=== PATIENT | male | born 1940 | race Caucasian/White ===

== ENCOUNTER 2016-06-15 09:53 | Inpatient (IN) | payer MEDICARE, OTHER ==
[~2016-06-15] VITALS: Ht 167.6 cm; Wt 81.0 kg
[~2016-06-15 09:53] MED LIST: AMIO200T PO; AMLO5TAB4 PO; ATOR20TA38 PO; Acetaminophen PO; CARV12.598 PO; CEPH500C PO; CLOP75TA4 PO; ENAL5TAB81 PO; FURO-110 PO; GLIM2TAB PO; RTPRO5 NEB; SITA100T8 PO
[2016-06-15] MEDS ORDERED: FUROSEMIDE 40 MG INJ IV STA (10:04)
[2016-06-15] MEDS ORDERED: AMIODARONE 150 MG INJ IV STA (10:15)
[2016-06-15] MEDS ORDERED: CARV3.12 PO (10:21)
[2016-06-15] MEDS ORDERED: ATOR80TA75 PO (10:21)
[2016-06-15] MEDS ORDERED: SIN25100 PO (10:22)
[2016-06-15] MEDS ORDERED: TRAM-40 PO (10:23)
[2016-06-15] MEDS ORDERED: DUTA1CPM4 PO (10:23)
[2016-06-15] MEDS ORDERED: MOME13HF2 INHALATION (10:24)
[2016-06-15] MEDS ORDERED: ALBU8.5H3 INH (10:24)
[2016-06-15] MEDS ORDERED: METOPROLOL 5 MG INJ IV ONE (10:30)
[2016-06-15 10:33] LABS: BASOPHILS % 0.3 % (0.0-2.0); EOSINOPHILS # 0.1 10^3/ul (0.0-0.5); EOSINOPHILS % 0.8 % (0.0-7.0); HEMATOCRIT 31.6 % (42.0-52.0); HEMOGLOBIN 10.8 g/dl (14.0-18.0); LYMPHOCYTES # 1.1 10^3/ul (0.8-2.9); LYMPHOCYTES % 15.3 % (15.0-51.0); MEAN CORPUSCULAR HEMOGLOBIN 30.3 pg (29.0-33.0); MEAN CORPUSCULAR HGB CONC 34.1 g/dl (32.0-37.0); MEAN CORPUSCULAR VOLUME 88.9 fl (82.0-101.0); MEAN PLATELET VOLUME 10.4 fl (7.4-10.4); MONOCYTE # 0.6 10^3/ul (0.3-0.9); MONOCYTES % 8.1 % (0.0-11.0); NEUTROPHIL # 5.2 10^3/ul (1.6-7.5); NEUTROPHILS % 75.5 % (39.0-77.0); PLATELET COUNT 84 10^3/UL (140-440); RED BLOOD COUNT 3.55 10^6/ul (4.70-6.10); RED CELL DISTRIBUTION WIDTH 15.1 % (11.5-14.5); UNCORRECTED WBC 6.9 10^3/ul (4.8-10.8); WHITE BLOOD COUNT 6.9 10^3/ul (4.8-10.8)
[2016-06-15 10:38] LABS: CONDITION 1; LH ANALYZER COMMENTS 1
--- NOTE | 2016-06-15 10:38 | RADRPT ---
PROCEDURE: Chest x-ray CLINICAL INDICATION: Shortness of breath TECHNIQUE: Chest single view COMPARISON: 11/15/2015 FINDINGS: As before there is a left chest AICD. Stable mild cardiomegaly and an sclerotic aortic calcificatio n seen. Bony vessels are borderline prominent. There are low lung volumes with bibasilar atelectas is. Costophrenic angles are sharp. IMPRESSION: 1. Stable cardiomegaly and an sclerotic aortic calcification. 2. Borderline prominence of pulmonary vessels. 3. Low lung volumes. 4. AICD RPTAT: HH .Av Reed MD, MD Date Time Electronically viewed and signed by .Av Reed MD, on 06/15/2016 10:38 .W/
[2016-06-15 10:42] LABS: CHLORIDE 105 mmol/L (97-110); SODIUM 138 mmol/L (135-144)
[2016-06-15 10:43] LABS: POTASSIUM 5.3 mmol/L (3.5-5.1)
[2016-06-15 10:44] LABS: CREATININE 1.42 mg/dl (0.61-1.24)
[2016-06-15 10:45] LABS: ALANINE AMINOTRANSFERASE 18 IU/L (13-69); ALBUMIN/GLOBULIN RATIO 1.37; ALKALINE PHOSPHATASE 143 IU/L (42-121); ANION GAP 18 (8-16); ASPARTATE AMINO TRANSFERASE 26 IU/L (15-46); BILIRUBIN,INDIRECT 0.2 mg/dl (0-1.1); BILIRUBIN,TOTAL 0.2 mg/dl (0.2-1.3); BLOOD UREA NITROGEN 32 mg/dl (7-20); CARBON DIOXIDE 20 mmol/L (21-31); GLUCOSE 145 mg/dl (70-220); TOTAL PROTEIN 6.9 g/dl (6.1-8.1)
[2016-06-15 10:46] LABS: CALCIUM 8.8 mg/dl (8.4-10.2)
[2016-06-15 11:07] LABS: TROPONIN-I < 0.012 ng/ml (0.00-0.12)
[2016-06-15 11:38] LABS: INR 1.29; PROTIME 16.2 Sec (12.2-14.2); PT RATIO 1.3
--- NOTE | 2016-06-15 11:38 | ERA ---
ER Documentation Chief Complaint Date/Time DATE: 06/15/16 TIME: 1001 Chief Complaint SOB FOR 3 DAYS. SENT BY FOR TACHYCARDIA AND SOB. NO FEVERS. HPI 76-year-old male presents to the emergency department complaining of shortness of breath for 3 days. Patient is non-Tajik speaking with my history available from conversations with his family and his referring chief hospital administrator. Patient went to see his chief hospital administrator today for increasing shortness of breath over the last 3 days. Patient denied chest pain palpitations fevers chills or sputum production. Dr. Hartley Saw the patient and evaluated his pacemaker and we was noted to be in atrial fibrillation. Patient was referred to the emergency department for evaluation. ROS All systems reviewed and are negative except as per history of present illness. Medications Home Meds Active Scripts Furosemide* (Lasix*) 20 Mg Tab, 20 MG PO DAILY@06 for 30 Days, TAB Prov:MARIA LUZ LOPEZ MD 05/24/15 Reported Medications Mometasone-Formoterol (Dulera) 100-5 Mcg - 13 Gm Hfa.aer.ad, 2 PUFFS INHALATION BID, #1 INHALER 06/15/16 Albuterol Sulfate* (Proair HFA*) 8.5 Gm Hfa.aer.ad, 2 PUFF INH Q6H Y for WHEEZING AND SOB, #1 INHALER 06/15/16 Tramadol Hcl* (Ultram*) 50 Mg Tablet, 100 MG PO Q6H Y for PAIN, TAB 06/15/16 Dutasteride/Tamsulosin HCl (Dutasteride-Tamsulosin 0.5-0.4) 1 Each Cpmp.24hr, 1 EACH PO DAILY, CAP 06/15/16 Carbidopa-Levodopa* (Sinemet*) 25-100 Mg Tab, 1 TAB PO TID, TAB 06/15/16 Atorvastatin* (Atorvastatin*) 80 Mg Tablet, 80 MG PO QHS, #30 TAB 06/15/16 Carvedilol* (Coreg*) 3.125 Mg Tablet, 3.125 MG PO BID, #60 TAB 06/15/16 Glimepiride* (Glimepiride*) 2 Mg Tablet, 2 MG PO WITH BREAKFAST, TAB 11/15/15 Clopidogrel Bisulfate* (Clopidogrel Bisulfate*) 75 Mg Tablet, 75 MG PO DAILY, # 30 TAB 11/15/15 Sitagliptin* (Januvia*) 100 Mg Tablet, 100 MG PO DAILY, TAB 04/25/15 Discontinued Reported Medications Amlodipine Besylate* (Norvasc*) 5 Mg Tablet, 5 MG PO DAILY, TAB 11/15/15 Discontinued Scripts Cephalexin* (Cephalexin*) 500 Mg Capsule, 500 MG PO TID, #21 CAP Prov:JAIRO JENNINGS MD 11/16/15 [Acetaminophen*] 325 MG TAB No Conflict Check, 650 MG PO Q6H Y for PAIN LEVEL 1- 3 OR FEVER, #60 TAB Prov:JAIRO JENNINGS MD 11/16/15 Enalapril Maleate* (Vasotec*) 5 Mg Tab, 2.5 MG PO DAILY, #1 TAB Prov:CHIQUITA FLORES MD 06/07/15 Carvedilol* (Coreg*) 12.5 Mg Tab, 3.125 MG PO BID, #1 TAB Prov:CHIQUITA FLORES MD 06/07/15 Amiodarone Hcl* (Amiodarone Hcl*) 200 Mg Tab, 200 MG PO BID, #1 TAB Prov:CHIQUITA FLORES MD 06/07/15 Albuterol Sulfate* (Proventil* Neb) 2.5 Mg/0.5 Ml Nebu, 2.5 MG NEB Q2H RESP THERAPY Y for SHORTNESS OF BREATH, #1 BOTTLE Prov:CHIQUITA FLORES MD 06/07/15 Atorvastatin Calcium* (Atorvastatin Calcium*) 20 Mg Tab, 80 MG PO HS for 30 Days , TAB Prov:MARIA LUZ LOPEZ MD 05/24/15 Allergies Allergies: Coded Allergies: Penicillins (Verified Allergy, Unknown, 06/15/16) aspirin (Unverified Allergy, Unknown, 06/15/16) PMhx/Soc History of Surgery: No Anesthesia Reaction: No Hx Neurological Disorder: No Hx Respiratory Disorders: No Hx Cardiac Disorders: No Hx Psychiatric Problems: No Hx Miscellaneous Medical Probl: No Hx Alcohol Use: No Hx Substance Use: No Hx Tobacco Use: No Smoking Status: Never smoker FmHx Noncontributory for chief complaint Physical Exam Vitals Vital Signs Date Time Temp Pulse Resp B/P Pulse Ox O2 Delivery O2 Flow Rate FiO2 06/15/16 11:17 Nasal Cannula 06/15/16 11:00 98.3 121 20 76/60 98 Room Air 06/15/16 10:45 98.3 120 20 78/62 98 Room Air 06/15/16 10:45 Nasal Cannula 3 06/15/16 10:30 98.3 130 20 67/51 98 Room Air 06/15/16 09:55 98.8 139 22 124/75 100 Physical Exam GENERAL: Patient is an elderly ill-appearing gentleman HEENT: Pupils equal, round, and reactive to light. EOMI. There is no scleral icterus. NECK: C-spine is soft and supple, there is no meningismus. There is no cervical lymphadenopathy. No JVD noted LUNGS: Occasional crackle bilaterally, no tachypnea or retractions HEART: Pacemaker appreciated. Faint murmur over the precordium. Patient has a rapid irregularly irregular rate and rhythm ABDOMEN: Soft, non-tender, non-distended. There are bowel sounds in all four quadrants. No rebound or guarding. EXTREMITIES: 2+ edema both lower extremities without cyanosis or clubbing NEURO: The patient moves all four extremities with 5/5 strength. Cranial nerves II - XII are intact. Normal gait. Alert and oriented SKIN: There is no apparent rash or petechiae. HEME/LYMPHATIC: There is no evidence of excessive bruising or lymphedema. PSYCHIATRIC: The patient does not appear anxious or depressed. Result Diagram: 06/15/16 1018 06/15/16 1018 Results 24 hrs Laboratory Tests Test 06/15/16 10:18 Alanine Aminotransferase (ALT/SGPT) 18IU/L Albumin 4.0g/dl Albumin/Globulin Ratio 1.37 Alkaline Phosphatase 143IU/L Anion Gap 18 Aspartate Amino Transf (AST/SGOT) 26IU/L Basophils # 0.010^3/ul Basophils % 0.3% Blood Morphology Comment Blood Urea Nitrogen 32mg/dl Calcium Level 8.8mg/dl Carbon Dioxide Level 20mmol/L Chloride Level 105mmol/L Creatinine 1.42mg/dl Direct Bilirubin 0.00mg/dl Eosinophils # 0.110^3/ul Eosinophils % 0.8% Globulin 2.90g/dl Glucose Level 145mg/dl Hematocrit 31.6% Hemoglobin 10.8g/dl Indirect Bilirubin 0.2mg/dl Lymphocytes # 1.110^3/ul Lymphocytes % 15.3% Mean Corpuscular Hemoglobin 30.3pg Mean Corpuscular Hemoglobin Concent 34.1g/dl Mean Corpuscular Volume 88.9fl Mean Platelet Volume 10.4fl Monocytes # 0.610^3/ul Monocytes % 8.1% Neutrophils # 5.210^3/ul Neutrophils % 75.5% Nucleated Red Blood Cells # 0.010^3/ul Nucleated Red Blood Cells % 0.0/100WBC Platelet Count 8410^3/UL Potassium Level 5.3mmol/L Red Blood Count 3.5510^6/ul Red Cell Distribution Width 15.1% Sodium Level 138mmol/L Total Bilirubin 0.2mg/dl Total Protein 6.9g/dl Troponin I < 0.012ng/ml White Blood Count 6.910^3/ul Current Medications Medications (Trade) Dose Ordered Sig/Lloyd Route PRN Reason Start Time Stop Time Status Last Admin Dose Admin Furosemide (Lasix) 40 mg ONCE STAT IV 06/15/16 10:04 06/15/16 10:06 DC 06/15/16 10:17 Metoprolol Tartrate (Lopressor) 5 mg ONCE ONCE IV 06/15/16 10:30 06/15/16 10:31 DC 06/15/16 10:17 Amiodarone HCl (Cordarone) 150 mg ONCE STAT IV 06/15/16 10:15 06/15/16 10:16 DC 06/15/16 10:19 Procedures/MDM Patient was taken to a room, seen and evaluated. Comfort measures were initiated. Diagnostic tests were ordered and reviewed. 3 LEAD RHYTHM STRIP: Wide-complex atrial fibrillation with rapid ventricular response EK lead EKG reviewed by myself: Wide-complex tachycardia, likely A. fib with bundle branch block Left bundle branch block Nonspecific ST and T-wave changes Impression: Abnormal EKG RADIOLOGY: reviewed with the radiologist CONSULTATION: Dr. Mcguire and I spoke RE: his arrhythmia. Patient's pacemaker defibrillator had been interrogated in the office indicating that this was not ventricular tachycardia but an atrial rhythm. Dr. Jennings was notified for admission REEVALUATION: Patient went hypotensive after the Lasix and Lopressor, but appeared to be improving from a mental status. His heart rate was better at 120 and he did not appear to be in shock. I considered dobutamine and dopamine , but this seems unnecessary at this time given the patient's overall clinical picture and opted to further observe the patient closely. Intensive care unit admissions were arranged MEDICAL DECISION MAKING: This is a 76-year-old male presents to the emergency department short of breath. Differential diagnosis entertained was broad and potential high acuity. Ultimately, patient has evidence of decompensated congestive heart failure complicating a rapid atrial fibrillation and a cardiomyopathy with a known ejection fraction of 30%. Patient has required diuretics and rhythm control, but unfortunately has been hypotensive after these interventions. He does not necessarily appear to be in cardiogenic shock is not hypoperfusing at this time. Patient will require further intervention will be admitted to the intensive care unit for further close observation and I will initiate these further interventions if necessary based on the patient's clinical presentation. Fortunately, patient's kidney functions appear to be normal and his troponin appears to be normal. CRITICAL CARE: Time:>35 minutes Patient has a significant chance of clinical deterioration Treatments/Evaluations: Close monitoring and treatment of unstable vital signs, cardiorespiratory, and neurologic status, while maintaining tight balance of fluid, respiratory, and cardiac interventions. Departure Diagnosis: Primary Impression: Atrial fibrillation with rapid ventricular response Additional Impressions: CHF (congestive heart failure) Cardiomyopathy Bundle branch block DAVID MENDENHALL Jun 15, 2016 11:37
[2016-06-15 11:39] LABS: PARTIAL THROMBOPLASTIN TIME 29.2 Sec (25.0-35.0)
--- NOTE | 2016-06-15 11:58 | RADRPT ---
PROCEDURE: US left upper extremity venous CLINICAL INDICATION: Left upper extremity pain and swelling TECHNIQUE: Multiple longitudinal and transverse images of the right upper extremity veins were obt ained with hernández scale and color Doppler imaging. 2D grayscale measurements with compression, color Doppler flow, and augmentation was performed. COMPARISON: No prior studies are available for comparison. FINDINGS: The left jugular vein, subclavian vein, axillary vein, brachial, basilic, ulnar, and radial veins de monstrates normal filling of the vessel. Normal waveforms are visualized and there is normal respon se to augmentation. IMPRESSION: No evidence of a deep vein thrombosis involving the left upper extremity. RPTAT:PP .Anthony Myers MD, MD Date Time Electronically viewed and signed by .Anthony Myers MD, on 06/15/2016 11:58 .Skip/
[2016-06-15] MEDS ORDERED: HYDROmorphONE 1 MG/ML SYG IV PRN (14:00)
[2016-06-15] MEDS ORDERED: DOCUSATE SODIUM 100 MG CAP PO PRN (14:00)
[2016-06-15] MEDS ORDERED: ONDANSETRON 4 MG INJ IV PRN (14:00)
[2016-06-15] MEDS ORDERED: NA POLYST SULFON 15 GM/60 ML BTL PO ONE (14:00)
[2016-06-15] MEDS ORDERED: NA PHOSPHATE/BIPHOS 133 ML ENEMA PR PRN (14:00)
[2016-06-15] MEDS: TAMSULOSIN (SR) 0.4 MG CAP PO SCH (14:00)
[2016-06-15] MEDS ORDERED: Discontinue Glyburide, Glipizide, and/or Glimepiride prior to starting Insulin XX ONE (14:00)
[2016-06-15] MEDS ORDERED: BISACODYL (EC) 5 MG TAB PO PRN (14:00)
[2016-06-15] MEDS ORDERED: ALBUTEROL/IPRATROPIUM (NEB) 3 ML AMP HHN PRN (14:00)
[2016-06-15] MEDS ORDERED: BISACODYL 10 MG SUPP PR PRN (14:00)
[2016-06-15] MEDS ORDERED: HYPOGLYCEMIA PROTOCOL when Glucose is <70 mg/dL or symptomatic <90 mg/dL. XX ONE (14:00)
[2016-06-15] MEDS ORDERED: ZOLPIDEM 5 MG TAB PO PRN (14:00)
[2016-06-15] MEDS ORDERED: NACL 0.9% 3 ML SYG IV SCH (14:00)
[2016-06-15] MEDS ORDERED: MAGNESIUM HYDROXIDE 30ML CUP PO PRN (14:00)
--- NOTE | 2016-06-15 14:26 | HP ---
DATE OF ADMISSION: 06/15/2016 REASON FOR ADMISSION: Atrial fibrillation with rapid ventricular rate, severe hypotension, history of ischemic cardiomyopathy. HISTORY OF PRESENT ILLNESS: This is a 76-year-old male who has a past medical history of hypertensi on, hyperlipidemia, diabetes mellitus, history of ischemic cardiomyopathy with ejection fraction 25% to 30%. The patient was last admitted in September to October 2015 for cardiac arrhythmia and had status p ost AICD placement done by Dr. Mike Mcguire. The patient was sent today by his primary care doctors to come to the emergency room because of having abnormal labs. The BUN was high, creatinine was 1.7 . He was also complaining of shortness of breath for the past 3 days. The patient is not speaking. History has been obtained from his family members and also from his primary care doctor's notes. The patient was seen by Dr. Mike Mcguire in the clinic, he was complaining of shortness of breath. T he patient is noted to be in atrial fibrillation with rapid ventricular rate. He was sent to the [facility] Emergency Room. In the emergency room, his heart rate was also up to 130 s. The patient was given low dose of the metoprolol, but his blood pressure dropped down to 76/60. He was given 1 amiodarone dose and he is getting admitted to the ICU for severe hypotension and atr ial fibrillation with rapid ventricular rate. He denies any nausea, vomiting, headache, dizziness, blurry vision, constipation, diarrhea, dysuria, increased urinary frequency. REVIEW OF SYSTEMS: Positive for chest pain, palpitation, shortness of breath. Other 12-point revie w of systems has been obtained and is negative except what is mentioned in the history of present il lness. PAST MEDICAL HISTORY: Notable for hypertension, hyperlipidemia, diabetes mellitus, history of ische dave cardiomyopathy, EF 25% to 30%, status post automatic implantable cardioverter-defibrillator plac ement. History of congestive heart failure, systolic. PAST SURGICAL HISTORY: History of AICD placement in 2016. SOCIAL HISTORY: No smoking, alcohol and recreational drug use at this time. FAMILY HISTORY: He denies any history of coronary artery disease or stroke in the family. PHYSICAL EXAMINATION: VITAL SIGNS: Temperature 98.3, heart rate 123, respirations 20, blood pressure 85/63, saturation 10 0% on 2 liters nasal cannula. GENERAL: Awake, alert, in moderate distress due to the hypotension and shortness of breath. HEENT: Oropharynx clear. Moist mucous membrane. NECK: Jugular venous distention up the mid neck and jaw. LUNGS: Decreased breath sounds at both lung bases. HEART: S1, S2, irregularly irregular. ABDOMEN: Soft, nontender, nondistended. Bowel sounds are present. EXTREMITIES: No clubbing, cyanosis, or edema. NEUROLOGICAL: Nonfocal, intact. PSYCHIATRIC: Appropriate affect and mood. LABORATORY DATA/DIAGNOSTIC IMAGIN. WBC 6.9, hemoglobin 10.8, platelet count is 84. Sodium 138, potassium 5.3, chloride 105, bicarb jose 20, BUN 32, creatinine 1.4, glucose 145, calcium 8.8. LFTs are normal. Albumin 4. PT 16.2, PTT 29.2, INR 1.29. WBC 6.9, hemoglobin 10.8, platelet count is 84. 2. The patient had a lower extremity Doppler ultrasound done in the emergency room negative for DVT . 3. Chest x-ray shows stable cardiomegaly, aortic calcification, low lung volumes, AICD in place wit h borderline prominence of the pulmonary vessels. IMPRESSION: This is a 76-year-old male with: 1. Atrial fibrillation with rapid ventricular rate. 2. Severe hypotension with systolic in 80s, likely secondary to cardiogenic shock. 3. Acute congestive heart failure exacerbation, acute on chronic, systolic. 4. History of ischemic cardiomyopathy, EF 25% to 30%, status post automatic implantable cardioverte r-defibrillator placement. 5. History of hypertension. 6. History of hyperlipidemia. 7. History of diabetes mellitus. PLAN: 1. Patient is currently seen in the emergency room and he is getting admitted to the ICU due to the hypotension. He will be started on amiodarone for rate control. 2. Cardiology consult, Dr. Billy Mcclure has been consulted to see the patient. Echocardiogram has been ordered from the emergency room to be read by Dr. Mcclure. 3. I will continue his other home medications including Lipitor, Coreg, Plavix and I will give him Lasix 20 mg IV b.i.d. 4. Accu-Chek a.c. and bedtime with moderate dose NovoLog sliding scale. 5. Pain control with Tylenol, tramadol and morphine p.r.n. severe pain. 6. A.m. labs including a TSH, free T4, hemoglobin A1c and lipid panel has been ordered. The patien t is currently seen in the emergency room. 7. Heparin for DVT prophylaxis. 8. Protonix for GI prophylaxis. 9. The patient is currently seen in the emergency room and he will be followed up along with the ca rdiologist, Dr. Billy Mcclure. Dictated By: JAIRO YUNG MD, KP/UZIEL Conf#: [id number] DID#: [id number]
[2016-06-15] MEDS ORDERED: GLUCAGON 1 MG INJ IM PRN (14:30)
[2016-06-15] MEDS ORDERED: GLUCOSE GEL 15 GRAM TUBE BUCCAL PRN (14:30)
[2016-06-15] MEDS ORDERED: DEXTROSE 50% 50 ML SYRINGE IV PRN ×2 (14:30)
[2016-06-15] MEDS ORDERED: GLUCOSE GEL 15 GRAM TUBE PO PRN ×2 (14:30)
[2016-06-15 15:11] LABS: CREATINE KINASE 72 IU/L (23-200)
[2016-06-15 15:24] LABS: CK-MB 1.65 ng/ml (0.0-2.4); TROPONIN-I < 0.012 ng/ml (0.00-0.12)
--- NOTE | 2016-06-15 17:23 | RADRPT ---
Echocardiogram Report Patient Name: LORNA NOEL Gender: Male Date: 1940 Study Date: 15-Jun-2016 Churn Tender: Mary Buckley RDCS Location: ER Ref. Physician: JAIRO YUNG Quality: Adequate Procedures: Transthoracic echocardiogram with complete 2D, M-Mode, and doppler examination. Indications: Cardiomyopathy. Severe Congestive Heart Failure. 2D/M Mode Doppler Measurement Value Normal Ranges Measurement Value Normal Ranges LVIDd 2D 5.1 3.5 - 5.6 cm AV Peak Emanuel 0.8 m/sec LVIDs 2D 4.2 2.1 - 4.1 cm AV Peak PG 2.0 mmHg FS 2D 17.8 % LVOT Peak Emanuel 0.4 m/sec LVPWd 2D 1.2 0.6 - 1.1 cm LVOT Peak PG 1.0 mmHg IVSd 2D 1.0 0.6 - 1.1 cm MV E Peak Emanuel 0.6 m/sec IVS/LVPW 2D 0.8 TR Peak Emanuel 2.5 m/sec AoR Diam 2D 3.0 2.0 - 3.7 cm TR Peak PG 26.0 mmHg LA/Ao 2D 1 0 - 1 RVSP 41.0 mmHg EDV 2D 133.0 cm3 ESV 2D 74.1 cm3 LA Dimen 2D 4.1 2.3 - 4.0 cm Findings Left Ventricle: Normal left ventricular cavity size. Mild concentric left ventricular hypertrophy. Severe left ventricular systolic dysfunction. Ejection fraction is visually estimated at 20 %. Multiple segmental wall motion abnormalities. Right Ventricle: Normal right ventricular size. Normal right ventricular systolic function. Pacemaker right heart. Left Atrium: There is mild enlargement of left atrium. Right Atrium: The right atrium is normal in size. Mitral Valve: Mitral valve leaflets appear mildly thickened. Mild mitral valve regurgitation. Aortic Valve: Normal appearance of the aortic valve. No significant aortic stenosis or insufficiency. Tricuspid Valve: Estimated peak PA systolic pressure 41 mmHg. There is mild to moderate tricuspid regurgitation. Pulmonic Valve: Normal pulmonic valve appearance. Pericardium: Normal pericardium with no significant pericardial effusion. Aorta: Normal aortic root. IVC: Dilated IVC without respiratory collapse consistent with elevated right atrial pressure. Conclusions 1.Normal left ventricular cavity size. Mild concentric left ventricular hypertrophy. Severe left ventricular systolic dysfunction. Ejection fraction is visually estimated at 20 %. Multiple segmental wall motion abnormalities. 2.Normal right ventricular size. Normal right ventricular systolic function. Pacemaker right heart. 3.There is mild enlargement of left atrium. 4.Mitral valve leaflets appear mildly thickened. Mild mitral valve regurgitation. 5.Estimated peak PA systolic pressure 41 mmHg. There is mild to moderate tricuspid regurgitation. Electronically Signed By: Billy Mcclure 15-Jun-2016 17:22:17 -0800 Patient Name: LORNA NOEL Study Date: 15-Jun-2016 [id number]
[2016-06-15] MEDS ORDERED: AMIODARONE 150MG/D5W BOLUS 100 ML IV ONE (17:30)
[2016-06-15] MEDS: FUROSEMIDE 20 MG INJ IV SCH (18:00)
--- NOTE | 2016-06-15 19:08 | CONS ---
DATE OF ADMISSION: 06/15/2016 DATE OF CONSULTATION: 06/15/2016 TYPE OF CONSULTATION: Cardiology REASON FOR CONSULTATION: Tachyarrhythmia, hypotension, shortness of breath, chest pain. REQUESTING PHYSICIAN: Jairo Jennings MD HISTORY OF PRESENT ILLNESS: Mr. Mason is a 76-year-old male with history of ischemic cardiomyopa thy, decreased left ventricular ejection fraction last known approximately 30%, status post AICD cristino cement in 10/2015, hypertension, dyslipidemia, cardiac arrhythmia, who initially presented to his [facility] chief load dispatcher's office with complaints of shortness of breath, weakness, dizziness and subseque ntly was sent to the emergency department here at [facility]. Upon arrival, tempe rature of 98.8, blood pressure 124/75, pulse 139, but has dropped as low as 67/51 and at this time i s in the 70s systolic with pulses in the 130s. The patient's labs notable for white count of 6.9, h emoglobin 10.8, platelet count of 84. Sodium 138, potassium 5.3, creatinine 1.42, BUN 32. Troponin negative. Alkaline phosphatase 143, AST 26, AST 18. INR 1.29. The patient underwent a venous ult rasound due to asymmetric lower extremity edema revealing no evidence of deep vein thrombosis involving the left upper extremity. He had a chest x-ray that revealed stable cardiomegaly, a therosclerotic aortic calcification, borderline prominent pulmonary vessels, low lung volumes, and A ICD. The patient's electrocardiogram revealed a wide complex tachycardia, rate 134 with normal axis , normal intervals and diffuse nonspecific ST abnormalities. The patient since arrival has been milagros ated with amiodarone 150 mg IV x1, Kayexalate, Lopressor 5 mg IV push x1 and given a dose of Lasix. The patient at this time continues to have low blood pressure and awaits admit to the hospital. PAST MEDICAL HISTORY: As above in HPI. MEDICATIONS CURRENTLY IN HOSPITAL: 1. Plavix 75 mg daily. 2. Protonix 40 mg IV daily. 3. Lipitor 80 mg at bedtime. 4. Carbidopa, levodopa 1 tab p.o. t.i.d. 5. Advair Diskus b.i.d. 6. Heparin 5000 subcutaneous q.12h. 7. Lasix 20 mg IV b.i.d. 8. Insulin sliding scale. 9. Carvedilol 3.125 mg p.o. b.i.d. 10. Ultram 100 mg daily p.r.n. 11. Zofran p.r.n. 12. Tylenol p.r.n. 13. Dilaudid p.r.n. 14. Colace p.r.n. 15. Fleets enema. 16. Ambien 17. DuoNeb. ALLERGIES: PENICILLIN AND ASPIRIN. SOCIAL HISTORY: No tobacco, ETOH or illicit drug use. FAMILY HISTORY: No history of sudden cardiac or early CAD. REVIEW OF SYSTEMS: As above in HPI. CONSTITUTIONAL: No fevers, chills. PULMONARY: Shortness of breath. CARDIOVASCULAR: Congestive heart failure, cardiomyopathy. GASTROINTESTINAL: No vomiting. GENITOURINARY: No hematuria. MUSCULOSKELETAL: Degenerative joint disease. PSYCHIATRIC: No documented psychiatric history. NEUROLOGIC: No documented history of CVA. ENDOCRINE: Documented history of diabetes mellitus. PHYSICAL EXAMINATION: VITAL SIGNS: Temperature 98.3, blood pressure 91/69, pulse 130, respiratory rate 20, saturating 100 % on 2 liters. GENERAL: The patient is alert, awake, complaining of shortness of breath, chest pain, palpitations, dizziness, weakness. NECK: JVP approximately 10 cm of water. CHEST: Bibasilar crackles. HEART: Tachycardic, regular rhythm, normal S1, S2. Laterally displaced PMI, II/ systolic murmur. ABDOMEN: Positive bowel sounds, soft. EXTREMITIES: 2 to 3+ edema bilaterally. Difficult to palpate distal pulses bilaterally posterior t ibial. LABORATORY DATA: As above in HPI. No further labs for my review at this time. IMAGING STUDIES: As above in HPI. No further imaging studies for my review at this time. ECG: As above in HPI. No further electrocardiograms for my review at this time. IMPRESSION 1. Hypotension, assess for cardiac etiology versus sepsis. 2. Wide complex tachycardia concerning for nonsustained ventricular tachycardia, more likely suprav entricular tachycardia with baseline bundle branch block. 3. Shortness of breath, assess for congestive heart failure. 4. Ischemic cardiomyopathy with decreased left ventricular ejection fraction, last known to be appr oximately 30% to 35% by echo 05/2015. 5. Chest pain, assess for acute coronary syndrome with a negative stress test 05/2015, EF of 39% at that time. 6. History of automatic implantable cardioverter-defibrillator, status post interrogation with a ba seline rate of 45 and VVI mode with good battery life and no events. 7. Severe lower extremity edema. 8. Anemia. 9. Renal failure. RECOMMENDATIONS: 1. At this time, would admit patient likely to ICU and will likely require pressure support for low blood pressure. 2. Continue the patient's Lasix diuresis and follow strict I's and O's to grade diuresis closely. 3. Would check a 2D echo to reassess patient's ejection fraction, check wall motion or any major ab normalities. 4. Complete the patient's rule out for myocardial infarction to show patient's constellation of sym ptoms are not due to an acute coronary syndrome or have not resulted in acute coronary syndrome. 5. Continue the patient's Plavix in lieu of aspirin given aspirin allergy. 6. We will not initiate the patient on systemic anticoagulation at this time given thrombocytopenia . We will continue to discern if patient will be a true long-term systemic anticoagulation candidat e. 7. We will give patient IV push digoxin in attempt to improve heart rate control and if unsuccessfu l, we will initiate the patient on amiodarone bolus with continuous infusion. 8. Continue the patient's statin therapy and adjust it according to a fasting lipid panel that sathya godinez be checked. 9. Continue the patient's bronchodilators. Follow respiratory status closely and check a TSH to be sure subclinical hyperthyroidism is not bouts of tachyarrhythmia. Thank you for allowing me to take part in the care of this patient. I will continue to follow very closely with you with further recommendations to be made as the patient progresses through his [facility] clinical course. Dictated By: DIANN SHRESTHA/UZIEL Conf#: [id number] DID#: [id number] CC: JAIRO JENNINGS MD;*EndCC*
[2016-06-15] MEDS: ACETAMINOPHEN 325 MG TAB PO PRN (20:48)
[2016-06-15] MEDS: INSULIN ASPART [NOVOLOG] 3 ML PEN SC SCH (21:00)
[2016-06-15] MEDS: SALMETEROL/FLUTICASONE 500/50 INHA INH SCH (21:05)
[2016-06-15] MEDS: CARBIDOPA/LEVODOPA (25/100) TAB PO SCH (21:05)
[2016-06-15] MEDS: ATORVASTATIN 80 MG TAB PO SCH (21:05)
[2016-06-15] MEDS: HEPARIN 5,000 UNIT/0.5 ML SYG SC SCH (21:15)
[2016-06-15 21:49] LABS: CREATINE KINASE 63 IU/L (23-200)
[2016-06-15 22:11] LABS: CK-MB 1.43 ng/ml (0.0-2.4); TROPONIN-I < 0.012 ng/ml (0.00-0.12)
[2016-06-16] VITALS (47 sets, daily range): BP systolic 75–133; BP diastolic 50–93; PULSE 50–134; RESP 9–21; TEMP 98.3; Ht 167.6 cm; Wt 81.0 kg
[2016-06-16] MEDS: DIGOXIN 500 MCG INJ IV SCH ×3 (00:34→05:52)
[2016-06-16] MEDS ORDERED: NORepinephrine 8MG/250 ML (PMX 250 ML ONE (02:05)
[2016-06-16] MEDS: AMIODARONE 900 MG in DEXTROSE 5% 482 ML IV SCH ×2 (02:22→14:00)
[2016-06-16] MEDS: ACETAMINOPHEN 325 MG TAB PO PRN ×2 (05:48→17:35)
[2016-06-16] MEDS: PANTOPRAZOLE 40 MG INJ IV SCH (05:51)
[2016-06-16] MEDS: FUROSEMIDE 20 MG INJ IV SCH ×2 (05:52→17:28)
[2016-06-16 06:44] LABS: BASOPHILS % 0.3 % (0.0-2.0); EOSINOPHILS % 0.6 % (0.0-7.0); HEMOGLOBIN 10.4 g/dl (14.0-18.0); LYMPHOCYTES # 0.9 10^3/ul (0.8-2.9); LYMPHOCYTES % 15.3 % (15.0-51.0); MEAN CORPUSCULAR HEMOGLOBIN 30.6 pg (29.0-33.0); MEAN CORPUSCULAR HGB CONC 34.7 g/dl (32.0-37.0); MEAN CORPUSCULAR VOLUME 88.2 fl (82.0-101.0); MEAN PLATELET VOLUME 10.3 fl (7.4-10.4); MONOCYTE # 0.4 10^3/ul (0.3-0.9); MONOCYTES % 7.1 % (0.0-11.0); NEUTROPHIL # 4.4 10^3/ul (1.6-7.5); NEUTROPHILS % 76.7 % (39.0-77.0); PLATELET COUNT 78 10^3/UL (140-440); RED CELL DISTRIBUTION WIDTH 15.2 % (11.5-14.5); UNCORRECTED WBC 5.7 10^3/ul (4.8-10.8); WHITE BLOOD COUNT 5.7 10^3/ul (4.8-10.8)
[2016-06-16 06:48] LABS: CONDITION 1; LH ANALYZER COMMENTS 1
[2016-06-16 06:57] LABS: ALBUMIN 3.8 g/dl (3.3-4.9)
[2016-06-16 06:58] LABS: POTASSIUM 4.5 mmol/L (3.5-5.1)
[2016-06-16 07:00] LABS: ALBUMIN/GLOBULIN RATIO 1.4; BILIRUBIN,INDIRECT 0.2 mg/dl (0-1.1); BILIRUBIN,TOTAL 0.2 mg/dl (0.2-1.3); CREATININE 1.27 mg/dl (0.61-1.24); TOTAL PROTEIN 6.5 g/dl (6.1-8.1)
[2016-06-16 07:01] LABS: CALCIUM 8.7 mg/dl (8.4-10.2); CHOL/HDL RATIO 2.6 RATIO
[2016-06-16 07:15] LABS: T3 UPTAKE 37.9 % (23.5-40.5)
[2016-06-16 07:29] LABS: THYROID STIMULATING HORMONE 2.8 MIU/L (0.465-4.680)
[2016-06-16] MEDS: INSULIN ASPART [NOVOLOG] 3 ML PEN SC SCH ×4 (07:35→21:00)
[2016-06-16] MEDS: SALMETEROL/FLUTICASONE 500/50 INHA INH SCH ×2 (08:35→20:54)
[2016-06-16] MEDS: TAMSULOSIN (SR) 0.4 MG CAP PO SCH (08:36)
[2016-06-16] MEDS: CARBIDOPA/LEVODOPA (25/100) TAB PO SCH ×3 (08:36→20:54)
[2016-06-16] MEDS: CLOPIDOGREL 75 MG TAB PO SCH (08:36)
[2016-06-16] MEDS: HEPARIN 5,000 UNIT/0.5 ML SYG SC SCH ×2 (08:40→21:00)
--- NOTE | 2016-06-16 09:11 | RADRPT ---
PROCEDURE: XR Chest. CLINICAL INDICATION: CHF. Reevaluation. TECHNIQUE: Single frontal view of the chest was obtained COMPARISON: Chest x-ray 06/15/2016 10:28 a.m. FINDINGS: Heart remains enlarged. Pulmonary vasculature is increased. There are interstitial infiltrates in the perihilar areas in bases of the lungs. There are bilateral pleural effusions. There is a singl e chamber cardiac pacemaker on the electrode lead projecting at the level of the right ventricle. T here are vascular calcifications in the aortic arch and ectasia of the descending thoracic aorta. IMPRESSION: 1. Cardiomegaly. 2. Mild pulmonary venous obstruction with faint interstitial pulmonary edema and small pleural effu sions. 3. Atherosclerosis and ectasia of the thoracic aorta. 4. Left-sided single lead defibrillator with electrode leads projecting at the level of the right v entricle. RPTAT:AAJJ Physician Cristy Date Time Electronically viewed and signed by Augusto Dudley Physician on 06/16/2016 09:11 LISA/
--- NOTE | 2016-06-16 10:18 | PN ---
Date/Time of Note Date/Time of Note DATE: 06/16/16 TIME: 10:15 Assessment/Plan VTE Prophylaxis VTE Prophylaxis Intervention: heparin, SCD's Lines/Catheters IV Catheter Type (from Nrs): Peripheral IV Urinary Cath still in place: No Assessment/Plan Assessment/Plan 1. Atrial fibrillation with rapid ventricular rate.- converted to SR overnight 2. Severe hypotension with systolic in 80s, likely secondary to cardiogenic shock. 3. Acute congestive heart failure exacerbation, acute on chronic, systolic. 4. History of ischemic cardiomyopathy, EF 25% to 30%, status post automatic implantable cardioverter-defibrillator placement. 5. History of hypertension. 6. History of hyperlipidemia. 7. History of diabetes mellitus. PLAN: converted to SR now - amiodarone drip has been stopped, BP stable,afebrile, IV lasix 20mg BID for diuresis Cardiology has been following Heparin for DVT prophylaxis ECHO has been ordered Start diet appreciate cardiology help Subjective 24 Hr Interval Summary Free Text/Dictation pt in ICU, stable, HR now controlled Exam/Review of Systems Vital Signs Vitals Vital Signs Date Time Temp Pulse Resp B/P Pulse Ox O2 Delivery O2 Flow Rate FiO2 06/16/16 09:00 16 106/64 98 Nasal Cannula 06/16/16 08:30 58 06/16/16 08:00 98.4 06/16/16 02:00 2.0 06/15/16 21:34 30 Intake and Output 06/15/16 06/15/16 06/16/16 15:00 23:00 07:00 Intake Total 19 ml Output Total 400 ml Balance -381 ml Exam GENERAL: Awake, alert, HEENT: Oropharynx clear. Moist mucous membrane. NECK: Jugular venous distention up the mid neck and jaw. LUNGS: Decreased breath sounds at both lung bases. HEART: S1, S2,Regular rthythm ABDOMEN: Soft, nontender, nondistended. Bowel sounds are present. EXTREMITIES: No clubbing, cyanosis, or edema. NEUROLOGICAL: Nonfocal, intact. PSYCHIATRIC: Appropriate affect and mood. Results Result Diagram: 06/16/16 0535 06/16/16 0535 Results 24 hrs Laboratory Tests Test 06/15/16 10:18 06/15/16 11:04 06/15/16 15:00 06/15/16 16:41 Alanine Aminotransferase (ALT/SGPT) 18 Albumin 4.0 Albumin/Globulin Ratio 1.37 Alkaline Phosphatase 143 H Anion Gap 18 H Aspartate Amino Transf (AST/SGOT) 26 Basophils # 0.0 Basophils % 0.3 Blood Morphology Comment Blood Urea Nitrogen 32 H Calcium Level 8.8 Carbon Dioxide Level 20 L Chloride Level 105 Creatinine 1.42 H Direct Bilirubin 0.00 Eosinophils # 0.1 Eosinophils % 0.8 Globulin 2.90 Glucose Level 145 Hematocrit 31.6 L Hemoglobin 10.8 L Indirect Bilirubin 0.2 Lymphocytes # 1.1 Lymphocytes % 15.3 Mean Corpuscular Hemoglobin 30.3 Mean Corpuscular Hemoglobin Concent 34.1 Mean Corpuscular Volume 88.9 Mean Platelet Volume 10.4 Monocytes # 0.6 Monocytes % 8.1 Neutrophils # 5.2 Neutrophils % 75.5 Nucleated Red Blood Cells # 0.0 Nucleated Red Blood Cells % 0.0 Platelet Count 84 L Potassium Level 5.3 H Red Blood Count 3.55 L Red Cell Distribution Width 15.1 H Sodium Level 138 Total Bilirubin 0.2 Total Protein 6.9 Troponin I < 0.012 < 0.012 White Blood Count 6.9 # Activated Partial Thromboplast Time 29.2 INR International Normalized Ratio 1.29 Prothrombin Time 16.2 H Prothrombin Time Ratio 1.3 Creatine Kinase 72 Creatine Kinase Index 2.3 Creatinine Kinase MB (Mass) 1.65 Bedside Glucose 144 Test 06/15/16 21:20 06/16/16 05:35 Creatine Kinase 63 Creatine Kinase Index 2.3 Creatinine Kinase MB (Mass) 1.43 Troponin I < 0.012 Alanine Aminotransferase (ALT/SGPT) 20 Albumin 3.8 Albumin/Globulin Ratio 1.40 Alkaline Phosphatase 107 Anion Gap 16 Aspartate Amino Transf (AST/SGOT) 29 Basophils # 0.0 Basophils % 0.3 Blood Morphology Comment Blood Urea Nitrogen 32 H Calcium Level 8.7 Carbon Dioxide Level 24 Chloride Level 102 Cholesterol Level 94 L Cholesterol/HDL Ratio 2.6 Creatinine 1.27 H Direct Bilirubin 0.00 Eosinophils # 0.0 Eosinophils % 0.6 Free Thyroxine Index 3.30 Globulin 2.70 Glucose Level 132 HDL Cholesterol 35 Hematocrit 30.0 L Hemoglobin 10.4 L Indirect Bilirubin 0.2 LDL Cholesterol, Calculated 38 Lymphocytes # 0.9 Lymphocytes % 15.3 Mean Corpuscular Hemoglobin 30.6 Mean Corpuscular Hemoglobin Concent 34.7 Mean Corpuscular Volume 88.2 Mean Platelet Volume 10.3 Monocytes # 0.4 Monocytes % 7.1 Neutrophils # 4.4 Neutrophils % 76.7 Nucleated Red Blood Cells # 0.0 Nucleated Red Blood Cells % 0.0 Platelet Count 78 L Potassium Level 4.5 Red Blood Count 3.40 L Red Cell Distribution Width 15.2 H Sodium Level 137 Thyroid Stimulating Hormone (TSH) 2.800 Thyroxine (T4) 8.7 Total Bilirubin 0.2 Total Protein 6.5 Triglycerides Level 105 Triiodothyronine (T3) Uptake 37.9 White Blood Count 5.7 Medications Medications Current Medications Atorvastatin Calcium (Lipitor) 80 mg QHS PO Last administered on 06/15/16 21: 05; Admin Dose 80 MG; Start 06/15/16 at 21:00 Carbidopa/Levodopa (Sinemet (25/ 100)) 1 tab TID PO Last administered on 08:36; Admin Dose 1 TAB; Start 06/15/16 at 21:00 Carvedilol (Coreg) 3.125 mg BID PO Last administered on 06/16/16 08:36; Admin Dose 3.125 MG; Start 06/15/16 at 14:00 Clopidogrel Bisulfate (plaVIX) 75 mg DAILY PO Last administered on 06/16/16 08 :36; Admin Dose 75 MG; Start 06/16/16 at 09:00 Tramadol HCl (Ultram) 100 mg Q6H PRN PO Moderate PAIN; Start 06/15/16 at 14:00 Tamsulosin HCl (Flomax) 0.4 mg DAILY PO Last administered on 06/16/16 08:36; Admin Dose 0.4 MG; Start 06/15/16 at 14:00 Salmeterol Xinafoate/ Fluticasone (Advair 500/50 Diskus) 1 inh BID INH Last administered on 06/16/16 08:35; Admin Dose 1 INH; Start 06/15/16 at 21:00 Ondansetron HCl (Zofran Inj) 4 mg Q4H PRN IV NAUSEA AND/OR VOMITING; Start at 14:00 Acetaminophen (Tylenol Tab) 650 mg Q6H PRN PO PAIN LEVEL 1-3 OR FEVER Last administered on 06/16/16 05:48; Admin Dose 650 MG; Start 06/15/16 at 14:00 Hydromorphone HCl (Dilaudid) 0.5 mg Q4H PRN IV SEVERE PAIN LEVEL 7-10; Start at 14:00 Docusate Sodium (Colace) 100 mg Q12H PRN PO CONSTIPATION; Start 06/15/16 at 14: 00 Magnesium Hydroxide (Milk Of Mag) 30 ml DAILY PRN PO CONSTIPATION; Start at 14:00 Bisacodyl (Dulcolax) 5 mg DAILY PRN PO CONSTIPATION; Start 06/15/16 at 14:00 Bisacodyl (Dulcolax Supp) 10 mg DAILY PRN [place] CONSTIPATION; Start 06/15/16 at 14 :00 Sodium Biphosphate/ Sodium Phosphate (Fleet Enema) 133 ml DAILY PRN [place] CONSTIPATION; Start 06/15/16 at 14:00 Zolpidem Tartrate (Ambien) 5 mg QHS PRN PO SLEEP; Start 06/15/16 at 14:00 Pantoprazole (Protonix Iv) 40 mg DAILY@06 IV Last administered on 06/16/16t 05: 51; Admin Dose 40 MG; Start 06/16/16 at 06:00 Heparin Sodium (Porcine) (Heparin (5000 Units/0.5 ml)) 5,000 unit Q12 SC Last administered on 06/16/16 08:40; Admin Dose 5,000 UNIT; Start 06/15/16 at 21:00 Miscellaneous Information 1 ea NOTE XX ; Start 06/15/16 at 14:30 Glucose (Glutose) 15 gm Q15M PRN PO DECREASED GLUCOSE; Start 06/15/16 at 14:30 Glucose (Glutose) 22.5 gm Q15M PRN PO DECREASED GLUCOSE; Start 06/15/16 at 14: 30 Dextrose (D50w Syringe) 25 ml Q15M PRN IV DECREASED GLUCOSE; Start 06/15/16 at 14:30 Dextrose (D50w Syringe) 50 ml Q15M PRN IV DECREASED GLUCOSE; Start 06/15/16 at 14:30 Glucagon (Glucagen) 1 mg Q15M PRN IM DECREASED GLUCOSE; Start 06/15/16 at 14:30 Glucose 15 gm 15 gm Q15M PRN BUCCAL DECREASED GLUCOSE; Start 06/15/16 at 14:30 Norepinephrine 16 mg/Dextrose 500 ml @ 1.87 mls/hr TITRATE IV Last administered on 06/16/16 05:45; Admin Dose 5.62 MLS/HR; Start 06/15/16 at 17:30 Amiodarone HCl/ Dextrose (Cordarone Iv/ D5W) 500 ml @ 0 mls/hr Q0M IV Last administered on 06/16/16 02:22; Admin Dose 33.4 MLS/HR; Start 06/15/16 at 17:30 ; Stop 06/16/16 at 17:29 JAIRO YUNG MD Jun 16, 2016 10:18
--- NOTE | 2016-06-16 12:17 | CONS ---
Date/Time of Note Date/Time of Note DATE: 06/16/16 TIME: 11:50 Assessment/Plan Assessment/Plan Chief Complaint/Hosp Course IMPRESSION 1. Hypotension, assess for cardiac etiology versus sepsis-now improved and off of pressors 2. Wide complex tachycardia concerning for nonsustained ventricular tachycardia , more likely supraventricular tachycardia with baseline bundle branch block.- now in sinus rhythm/Sinus nirmala-negative troponin x 3 3. Shortness of breath, assess for congestive heart failure. 4. Ischemic cardiomyopathy with decreased left ventricular ejection fraction, last known to be approximately 30% to 35% by echo 05/2015. 5. Chest pain, assess for acute coronary syndrome with a negative stress test 05/2015, EF of 39% at that time. 6. History of automatic implantable cardioverter-defibrillator, status post interrogation with a baseline rate of 45 and VVI mode with good battery life and no events. 7. Severe lower extremity edema. 8. Anemia. 9. Renal failure-slowly improving REcc: -Tele -serial ecg's. -Continue plavix -Continue lasix and follow volume status closely -Continue amio IV with transition to PO -Continue coreg Problems: Consultation Date/Type/Reason Admit Date/Time Jun 15, 2016 at 11:30 Initial Consult Date 06/15/16 Type of Consultation: Cardiology Reason for Consultation cardiac arrythmia/hypotension Referring Provider: JAIRO YUNG MD Exam/Review of Systems Vital Signs Vitals Vital Signs Date Time Temp Pulse Resp B/P Pulse Ox O2 Delivery O2 Flow Rate FiO2 06/16/16 11:00 50 14 102/51 94 Nasal Cannula 06/16/16 08:00 98.4 06/16/16 02:00 2.0 06/15/16 21:34 30 Intake and Output 06/15/16 06/15/16 06/16/16 15:00 23:00 07:00 Intake Total 19 ml Output Total 400 ml Balance -381 ml Exam Review of Systems: CONSTITUTIONAL: No fevers, chills. PULMONARY: No sob CARDIOVASCULAR: No chest pain/palpitations GASTROINTESTINAL: No nausea/vomiting. GENITOURINARY: No hematuria/dysuria. MUSCULOSKELETAL: No myagias/arthalgias. PSYCHIATRIC: The patient denies depression. NEUROLOGIC: No weakness Constitutional: alert, oriented Psych: no complaints Head: normocephalic ENMT: mucosa pink and moist Neck: jvd (9 cm water), supple Respiratory: diminished breath sounds (at bases/B) Cardiovascular: regular rate and rhythm Gastrointestinal: non-tender, soft Musculoskeletal: muscle tone (normal) Extremities: edema (none) Neurological: other (No focal deficits) Results Result Diagram: 06/16/16 0535 06/16/16 0535 Results 24 hrs Laboratory Tests Test 06/15/16 15:00 06/15/16 16:41 06/15/16 21:20 06/16/16 05:35 Creatine Kinase 72 63 Creatine Kinase Index 2.3 2.3 Creatinine Kinase MB (Mass) 1.65 1.43 Troponin I < 0.012 < 0.012 Bedside Glucose 144 Alanine Aminotransferase (ALT/SGPT) 20 Albumin 3.8 Albumin/Globulin Ratio 1.40 Alkaline Phosphatase 107 Anion Gap 16 Aspartate Amino Transf (AST/SGOT) 29 Basophils # 0.0 Basophils % 0.3 Blood Morphology Comment Blood Urea Nitrogen 32 H Calcium Level 8.7 Carbon Dioxide Level 24 Chloride Level 102 Cholesterol Level 94 L Cholesterol/HDL Ratio 2.6 Creatinine 1.27 H Direct Bilirubin 0.00 Eosinophils # 0.0 Eosinophils % 0.6 Free Thyroxine Index 3.30 Globulin 2.70 Glucose Level 132 HDL Cholesterol 35 Hematocrit 30.0 L Hemoglobin 10.4 L Indirect Bilirubin 0.2 LDL Cholesterol, Calculated 38 Lymphocytes # 0.9 Lymphocytes % 15.3 Mean Corpuscular Hemoglobin 30.6 Mean Corpuscular Hemoglobin Concent 34.7 Mean Corpuscular Volume 88.2 Mean Platelet Volume 10.3 Monocytes # 0.4 Monocytes % 7.1 Neutrophils # 4.4 Neutrophils % 76.7 Nucleated Red Blood Cells # 0.0 Nucleated Red Blood Cells % 0.0 Platelet Count 78 L Potassium Level 4.5 Red Blood Count 3.40 L Red Cell Distribution Width 15.2 H Sodium Level 137 Thyroid Stimulating Hormone (TSH) 2.800 Thyroxine (T4) 8.7 Total Bilirubin 0.2 Total Protein 6.5 Triglycerides Level 105 Triiodothyronine (T3) Uptake 37.9 White Blood Count 5.7 Medications Medications Current Medications Atorvastatin Calcium (Lipitor) 80 mg QHS PO Last administered on 06/15/16t 21: 05; Admin Dose 80 MG; Start 06/15/16 at 21:00 Carbidopa/Levodopa (Sinemet (25/ 100)) 1 tab TID PO Last administered on 08:36; Admin Dose 1 TAB; Start 06/15/16 at 21:00 Carvedilol (Coreg) 3.125 mg BID PO Last administered on 06/16/16 08:36; Admin Dose 3.125 MG; Start 06/15/16 at 14:00 Clopidogrel Bisulfate (plaVIX) 75 mg DAILY PO Last administered on 06/16/16 08 :36; Admin Dose 75 MG; Start 06/16/16 at 09:00 Tramadol HCl (Ultram) 100 mg Q6H PRN PO Moderate PAIN; Start 06/15/16 at 14:00 Tamsulosin HCl (Flomax) 0.4 mg DAILY PO Last administered on 06/16/16 08:36; Admin Dose 0.4 MG; Start 06/15/16 at 14:00 Salmeterol Xinafoate/ Fluticasone (Advair 500/50 Diskus) 1 inh BID INH Last administered on 06/16/16 08:35; Admin Dose 1 INH; Start 06/15/16 at 21:00 Ondansetron HCl (Zofran Inj) 4 mg Q4H PRN IV NAUSEA AND/OR VOMITING; Start at 14:00 Acetaminophen (Tylenol Tab) 650 mg Q6H PRN PO PAIN LEVEL 1-3 OR FEVER Last administered on 06/16/16 05:48; Admin Dose 650 MG; Start 06/15/16 at 14:00 Hydromorphone HCl (Dilaudid) 0.5 mg Q4H PRN IV SEVERE PAIN LEVEL 7-10; Start at 14:00 Docusate Sodium (Colace) 100 mg Q12H PRN PO CONSTIPATION; Start 06/15/16 at 14: 00 Magnesium Hydroxide (Milk Of Mag) 30 ml DAILY PRN PO CONSTIPATION; Start at 14:00 Bisacodyl (Dulcolax) 5 mg DAILY PRN PO CONSTIPATION; Start 06/15/16 at 14:00 Bisacodyl (Dulcolax Supp) 10 mg DAILY PRN [place] CONSTIPATION; Start 06/15/16 at 14 :00 Sodium Biphosphate/ Sodium Phosphate (Fleet Enema) 133 ml DAILY PRN [place] CONSTIPATION; Start 06/15/16 at 14:00 Zolpidem Tartrate (Ambien) 5 mg QHS PRN PO SLEEP; Start 06/15/16 at 14:00 Pantoprazole (Protonix Iv) 40 mg DAILY@06 IV Last administered on 06/16/16 05: 51; Admin Dose 40 MG; Start 06/16/16 at 06:00 Heparin Sodium (Porcine) (Heparin (5000 Units/0.5 ml)) 5,000 unit Q12 SC Last administered on 06/16/16 08:40; Admin Dose 5,000 UNIT; Start 06/15/16 at 21:00 Miscellaneous Information 1 ea NOTE XX ; Start 06/15/16 at 14:30 Glucose (Glutose) 15 gm Q15M PRN PO DECREASED GLUCOSE; Start 06/15/16 at 14:30 Glucose (Glutose) 22.5 gm Q15M PRN PO DECREASED GLUCOSE; Start 06/15/16 at 14: 30 Dextrose (D50w Syringe) 25 ml Q15M PRN IV DECREASED GLUCOSE; Start 06/15/16 at 14:30 Dextrose (D50w Syringe) 50 ml Q15M PRN IV DECREASED GLUCOSE; Start 06/15/16 at 14:30 Glucagon (Glucagen) 1 mg Q15M PRN IM DECREASED GLUCOSE; Start 06/15/16 at 14:30 Glucose 15 gm 15 gm Q15M PRN BUCCAL DECREASED GLUCOSE; Start 06/15/16 at 14:30 Norepinephrine 16 mg/Dextrose 500 ml @ 1.87 mls/hr TITRATE IV Last administered on 06/16/16 05:45; Admin Dose 5.62 MLS/HR; Start 06/15/16 at 17:30 Amiodarone HCl/ Dextrose (Cordarone Iv/ D5W) 500 ml @ 0 mls/hr Q0M IV Last administered on 06/16/16 02:22; Admin Dose 33.4 MLS/HR; Start 06/15/16 at 17:30 ; Stop 06/16/16 at 17:29 DIANN VO Jun 16, 2016 12:13
[2016-06-16] MEDS: ATORVASTATIN 80 MG TAB PO SCH (20:52)
[2016-06-17] VITALS (26 sets, daily range): BP systolic 86–161; BP diastolic 46–78; PULSE 49–127; RESP 8–20
[2016-06-17] MEDS: ACETAMINOPHEN 325 MG TAB PO PRN (00:36)
[2016-06-17] MEDS: FUROSEMIDE 20 MG INJ IV SCH ×2 (05:28→17:21)
[2016-06-17] MEDS: PANTOPRAZOLE 40 MG INJ IV SCH (05:28)
[2016-06-17 05:50] LABS: BASOPHILS % 0.3 % (0.0-2.0); EOSINOPHILS % 0.3 % (0.0-7.0); HEMATOCRIT 27.6 % (42.0-52.0); HEMOGLOBIN 9.5 g/dl (14.0-18.0); LYMPHOCYTES # 0.8 10^3/ul (0.8-2.9); LYMPHOCYTES % 20.9 % (15.0-51.0); MEAN CORPUSCULAR HEMOGLOBIN 30.3 pg (29.0-33.0); MEAN CORPUSCULAR HGB CONC 34.4 g/dl (32.0-37.0); MEAN PLATELET VOLUME 9.2 fl (7.4-10.4); MONOCYTE # 0.3 10^3/ul (0.3-0.9); MONOCYTES % 8.2 % (0.0-11.0); NEUTROPHIL # 2.8 10^3/ul (1.6-7.5); NEUTROPHILS % 70.3 % (39.0-77.0); RED BLOOD COUNT 3.14 10^6/ul (4.70-6.10); RED CELL DISTRIBUTION WIDTH 14.6 % (11.5-14.5)
[2016-06-17 06:00] LABS: CONDITION 1; LH ANALYZER COMMENTS 1; PLATELET COUNT 65 10^3/UL (140-440)
[2016-06-17 06:04] LABS: POTASSIUM 4.5 mmol/L (3.5-5.1)
[2016-06-17 06:07] LABS: CREATININE 1.34 mg/dl (0.61-1.24)
[2016-06-17 06:08] LABS: CALCIUM 8.7 mg/dl (8.4-10.2)
[2016-06-17 06:13] LABS: INR 1.36; PROTIME 16.8 Sec (12.2-14.2); PT RATIO 1.3
[2016-06-17 06:14] LABS: PARTIAL THROMBOPLASTIN TIME 30.3 Sec (25.0-35.0)
[2016-06-17] MEDS: INSULIN ASPART [NOVOLOG] 3 ML PEN SC SCH ×4 (07:35→21:20)
[2016-06-17] MEDS: CARBIDOPA/LEVODOPA (25/100) TAB PO SCH ×3 (09:00→21:17)
[2016-06-17] MEDS: HEPARIN 5,000 UNIT/0.5 ML SYG SC SCH ×2 (09:00→21:20)
[2016-06-17] MEDS: TAMSULOSIN (SR) 0.4 MG CAP PO SCH (09:00)
[2016-06-17] MEDS: CLOPIDOGREL 75 MG TAB PO SCH (09:00)
[2016-06-17] MEDS: SALMETEROL/FLUTICASONE 500/50 INHA INH SCH ×2 (09:59→21:16)
--- NOTE | 2016-06-17 11:08 | CONS ---
Date/Time of Note Date/Time of Note DATE: 06/17/16 TIME: 11:06 Assessment/Plan Assessment/Plan Chief Complaint/Hosp Course IMPRESSION 1. Hypotension, assess for cardiac etiology versus sepsis-now improved and off of pressors 2. Wide complex tachycardia concerning for nonsustained ventricular tachycardia , more likely supraventricular tachycardia with baseline bundle branch block.- now in sinus rhythm/Sinus nirmala-negative troponin x 3 3. Shortness of breath, assess for congestive heart failure. 4. Ischemic cardiomyopathy with decreased left ventricular ejection fraction, last known to be approximately 30% to 35% by echo 05/2015. 5. Chest pain, assess for acute coronary syndrome with a negative stress test 05/2015, EF of 39% at that time. 6. History of automatic implantable cardioverter-defibrillator, status post interrogation with a baseline rate of 45 and VVI mode with good battery life and no events. 7. Severe lower extremity edema. 8. Anemia. 9. Renal failure-slowly improving REcc: -Tele -serial ecg's. -Continue plavix -Continue lasix and follow volume status closely -Start PO amiodarone as tolerated in attempt to maintain SR -Continue coreg Problems: Consultation Date/Type/Reason Admit Date/Time Jun 15, 2016 at 11:30 Initial Consult Date 06/15/16 Type of Consultation: Cardiology Reason for Consultation CHF/cardiac arrythmia Referring Provider: JAIRO YUNG MD Exam/Review of Systems Vital Signs Vitals Vital Signs Date Time Temp Pulse Resp B/P Pulse Ox O2 Delivery O2 Flow Rate FiO2 06/17/16 10:00 60 14 131/78 96 Room Air 06/17/16 08:00 98.2 06/16/16 02:00 2.0 06/15/16 21:34 30 Intake and Output 06/16/16 06/16/16 06/17/16 14:59 22:59 06:59 Intake Total 906 ml 736 ml 479 ml Output Total 850 ml 1000 ml 1200 ml Balance 56 ml -264 ml -721 ml Exam Review of Systems: CONSTITUTIONAL: No fevers, chills. PULMONARY: mild sob CARDIOVASCULAR: No chest pain/palpitations GASTROINTESTINAL: No nausea/vomiting. GENITOURINARY: No hematuria/dysuria. MUSCULOSKELETAL: No myagias/arthalgias. PSYCHIATRIC: The patient denies depression. NEUROLOGIC: No weakness Constitutional: alert Psych: no complaints Head: normocephalic ENMT: mucosa pink and moist Neck: jvd (9 cm water), supple Respiratory: diminished breath sounds (at bases/B) Cardiovascular: other (bradycardic, regular rhythm) Gastrointestinal: non-tender, soft Musculoskeletal: muscle tone (normal) Extremities: pitting pedal edema (BIlateral) Neurological: other (No focal deficits) Results Result Diagram: 06/17/16 0500 06/17/16 0500 Results 24 hrs Laboratory Tests Test 06/16/16 11:39 06/16/16 17:24 06/16/16 20:59 06/17/16 05:00 Bedside Glucose 233 H 96 174 Activated Partial Thromboplast Time 30.3 Anion Gap 14 Basophils # 0.0 Basophils % 0.3 Blood Morphology Comment Blood Urea Nitrogen 28 H Calcium Level 8.7 Carbon Dioxide Level 26 Chloride Level 104 Creatinine 1.34 H Eosinophils # 0.0 Eosinophils % 0.3 Glucose Level 137 Hematocrit 27.6 L Hemoglobin 9.5 L INR International Normalized Ratio 1.36 Lymphocytes # 0.8 Lymphocytes % 20.9 Magnesium Level 2.1 Mean Corpuscular Hemoglobin 30.3 Mean Corpuscular Hemoglobin Concent 34.4 Mean Corpuscular Volume 88.0 Mean Platelet Volume 9.2 Monocytes # 0.3 Monocytes % 8.2 Neutrophils # 2.8 Neutrophils % 70.3 Nucleated Red Blood Cells # 0.0 Nucleated Red Blood Cells % 0.0 Platelet Count 65 L Potassium Level 4.5 Prothrombin Time 16.8 H Prothrombin Time Ratio 1.3 Red Blood Count 3.14 L Red Cell Distribution Width 14.6 H Sodium Level 139 White Blood Count 4.0 #L Medications Medications Current Medications Atorvastatin Calcium (Lipitor) 80 mg QHS PO Last administered on 06/16/16 20: 52; Admin Dose 80 MG; Start 06/15/16 at 21:00 Carbidopa/Levodopa (Sinemet (25/ 100)) 1 tab TID PO Last administered on 09:00; Admin Dose 1 TAB; Start 06/15/16 at 21:00 Carvedilol (Coreg) 3.125 mg BID PO Last administered on 06/17/16 10:00; Admin Dose 3.125 MG; Start 06/15/16 at 14:00 Clopidogrel Bisulfate (plaVIX) 75 mg DAILY PO Last administered on 06/17/16 09 :00; Admin Dose 75 MG; Start 06/16/16 at 09:00 Tramadol HCl (Ultram) 100 mg Q6H PRN PO Moderate PAIN; Start 06/15/16 at 14:00 Tamsulosin HCl (Flomax) 0.4 mg DAILY PO Last administered on 06/17/16 09:00; Admin Dose 0.4 MG; Start 06/15/16 at 14:00 Salmeterol Xinafoate/ Fluticasone (Advair 500/50 Diskus) 1 inh BID INH Last administered on 06/17/16 09:59; Admin Dose 1 INH; Start 06/15/16 at 21:00 Ondansetron HCl (Zofran Inj) 4 mg Q4H PRN IV NAUSEA AND/OR VOMITING; Start at 14:00 Acetaminophen (Tylenol Tab) 650 mg Q6H PRN PO PAIN LEVEL 1-3 OR FEVER Last administered on 06/17/16 00:36; Admin Dose 650 MG; Start 06/15/16 at 14:00 Hydromorphone HCl (Dilaudid) 0.5 mg Q4H PRN IV SEVERE PAIN LEVEL 7-10; Start at 14:00 Docusate Sodium (Colace) 100 mg Q12H PRN PO CONSTIPATION; Start 06/15/16 at 14: 00 Magnesium Hydroxide (Milk Of Mag) 30 ml DAILY PRN PO CONSTIPATION; Start at 14:00 Bisacodyl (Dulcolax) 5 mg DAILY PRN PO CONSTIPATION; Start 06/15/16 at 14:00 Bisacodyl (Dulcolax Supp) 10 mg DAILY PRN [place] CONSTIPATION; Start 06/15/16 at 14 :00 Sodium Biphosphate/ Sodium Phosphate (Fleet Enema) 133 ml DAILY PRN [place] CONSTIPATION; Start 06/15/16 at 14:00 Zolpidem Tartrate (Ambien) 5 mg QHS PRN PO SLEEP; Start 06/15/16 at 14:00 Pantoprazole (Protonix Iv) 40 mg DAILY@06 IV Last administered on 06/17/16 05: 28; Admin Dose 40 MG; Start 06/16/16 at 06:00 Heparin Sodium (Porcine) (Heparin (5000 Units/0.5 ml)) 5,000 unit Q12 SC Last administered on 06/17/16 09:00; Admin Dose 5,000 UNIT; Start 06/15/16 at 21:00 Miscellaneous Information 1 ea NOTE XX ; Start 06/15/16 at 14:30 Glucose (Glutose) 15 gm Q15M PRN PO DECREASED GLUCOSE; Start 06/15/16 at 14:30 Glucose (Glutose) 22.5 gm Q15M PRN PO DECREASED GLUCOSE; Start 06/15/16 at 14: 30 Dextrose (D50w Syringe) 25 ml Q15M PRN IV DECREASED GLUCOSE; Start 06/15/16 at 14:30 Dextrose (D50w Syringe) 50 ml Q15M PRN IV DECREASED GLUCOSE; Start 06/15/16 at 14:30 Glucagon (Glucagen) 1 mg Q15M PRN IM DECREASED GLUCOSE; Start 06/15/16 at 14:30 Glucose 15 gm 15 gm Q15M PRN BUCCAL DECREASED GLUCOSE; Start 06/15/16 at 14:30 Norepinephrine/ Dextrose (Levophed/D5W) 500 ml @ 1.87 mls/hr TITRATE IV Last administered on 06/16/16 05:45; Admin Dose 5.62 MLS/HR; Start 06/15/16 at 17:30 DIANN VO Jun 17, 2016 11:08
--- NOTE | 2016-06-17 18:46 | PN ---
Date/Time of Note Date/Time of Note DATE: 06/17/16 TIME: 18:44 Assessment/Plan VTE Prophylaxis VTE Prophylaxis Intervention: heparin Lines/Catheters IV Catheter Type (from Nrs): Saline Lock Urinary Cath still in place: No Assessment/Plan Assessment/Plan 1. Atrial fibrillation with rapid ventricular rate.- converted to SR overnight 2. Severe hypotension with systolic in 80s, likely secondary to cardiogenic shock. 3. Acute congestive heart failure exacerbation, acute on chronic, systolic. 4. History of ischemic cardiomyopathy, EF 25% to 30%, status post automatic implantable cardioverter-defibrillator placement. 5. History of hypertension. 6. History of hyperlipidemia. 7. History of diabetes mellitus. PLAN: converted to SR now - amiodarone drip has been stopped, BP stable,afebrile, IV lasix 20mg BID for diuresis Cardiology has been following Heparin for DVT prophylaxis Subjective 24 Hr Interval Summary Free Text/Dictation stable, HR controlled, transferred to telemetry floor Exam/Review of Systems Vital Signs Vitals Vital Signs Date Time Temp Pulse Resp B/P Pulse Ox O2 Delivery O2 Flow Rate FiO2 06/17/16 17:22 57 06/17/16 15:59 97.9 17 161/75 98 06/17/16 14:00 Mechanical Ventilator 06/16/16 02:00 2.0 06/15/16 21:34 30 Intake and Output 06/16/16 06/16/16 06/17/16 15:00 23:00 07:00 Intake Total 919 ml 736 ml 462 ml Output Total 850 ml 1000 ml 1200 ml Balance 69 ml -264 ml -738 ml Exam GENERAL: Awake, alert, HEENT: Oropharynx clear. Moist mucous membrane. NECK: Jugular venous distention up the mid neck and jaw. LUNGS: Decreased breath sounds at both lung bases. HEART: S1, S2,Regular rthythm ABDOMEN: Soft, nontender, nondistended. Bowel sounds are present. EXTREMITIES: No clubbing, cyanosis, or edema. NEUROLOGICAL: Nonfocal, intact. PSYCHIATRIC: Appropriate affect and mood. Results Result Diagram: 06/17/16 0500 06/17/16 0500 Results 24 hrs Laboratory Tests Test 06/16/16 20:59 06/17/16 05:00 06/17/16 11:31 06/17/16 17:10 Bedside Glucose 174 236 H 171 Activated Partial Thromboplast Time 30.3 Anion Gap 14 Basophils # 0.0 Basophils % 0.3 Blood Morphology Comment Blood Urea Nitrogen 28 H Calcium Level 8.7 Carbon Dioxide Level 26 Chloride Level 104 Creatinine 1.34 H Eosinophils # 0.0 Eosinophils % 0.3 Glucose Level 137 Hematocrit 27.6 L Hemoglobin 9.5 L INR International Normalized Ratio 1.36 Lymphocytes # 0.8 Lymphocytes % 20.9 Magnesium Level 2.1 Mean Corpuscular Hemoglobin 30.3 Mean Corpuscular Hemoglobin Concent 34.4 Mean Corpuscular Volume 88.0 Mean Platelet Volume 9.2 Monocytes # 0.3 Monocytes % 8.2 Neutrophils # 2.8 Neutrophils % 70.3 Nucleated Red Blood Cells # 0.0 Nucleated Red Blood Cells % 0.0 Platelet Count 65 L Potassium Level 4.5 Prothrombin Time 16.8 H Prothrombin Time Ratio 1.3 Red Blood Count 3.14 L Red Cell Distribution Width 14.6 H Sodium Level 139 White Blood Count 4.0 #L Medications Medications Current Medications Atorvastatin Calcium (Lipitor) 80 mg QHS PO Last administered on 06/16/16 20: 52; Admin Dose 80 MG; Start 06/15/16 at 21:00 Carbidopa/Levodopa (Sinemet (25/ 100)) 1 tab TID PO Last administered on 13:47; Admin Dose 1 TAB; Start 06/15/16 at 21:00 Carvedilol (Coreg) 3.125 mg BID PO Last administered on 06/17/16 10:00; Admin Dose 3.125 MG; Start 06/15/16 at 14:00 Clopidogrel Bisulfate (plaVIX) 75 mg DAILY PO Last administered on 06/17/16 09 :00; Admin Dose 75 MG; Start 06/16/16 at 09:00 Tramadol HCl (Ultram) 100 mg Q6H PRN PO Moderate PAIN; Start 06/15/16 at 14:00 Tamsulosin HCl (Flomax) 0.4 mg DAILY PO Last administered on 06/17/16 09:00; Admin Dose 0.4 MG; Start 06/15/16 at 14:00 Salmeterol Xinafoate/ Fluticasone (Advair 500/50 Diskus) 1 inh BID INH Last administered on 06/17/16 09:59; Admin Dose 1 INH; Start 06/15/16 at 21:00 Ondansetron HCl (Zofran Inj) 4 mg Q4H PRN IV NAUSEA AND/OR VOMITING; Start at 14:00 Acetaminophen (Tylenol Tab) 650 mg Q6H PRN PO PAIN LEVEL 1-3 OR FEVER Last administered on 06/17/16 00:36; Admin Dose 650 MG; Start 06/15/16 at 14:00 Hydromorphone HCl (Dilaudid) 0.5 mg Q4H PRN IV SEVERE PAIN LEVEL 7-10; Start at 14:00 Docusate Sodium (Colace) 100 mg Q12H PRN PO CONSTIPATION; Start 06/15/16 at 14: 00 Magnesium Hydroxide (Milk Of Mag) 30 ml DAILY PRN PO CONSTIPATION; Start at 14:00 Bisacodyl (Dulcolax) 5 mg DAILY PRN PO CONSTIPATION; Start 06/15/16 at 14:00 Bisacodyl (Dulcolax Supp) 10 mg DAILY PRN [place] CONSTIPATION; Start 06/15/16 at 14 :00 Sodium Biphosphate/ Sodium Phosphate (Fleet Enema) 133 ml DAILY PRN [place] CONSTIPATION; Start 06/15/16 at 14:00 Zolpidem Tartrate (Ambien) 5 mg QHS PRN PO SLEEP; Start 06/15/16 at 14:00 Pantoprazole (Protonix Iv) 40 mg DAILY@06 IV Last administered on 06/17/16 05: 28; Admin Dose 40 MG; Start 06/16/16 at 06:00 Heparin Sodium (Porcine) (Heparin (5000 Units/0.5 ml)) 5,000 unit Q12 SC Last administered on 06/17/16 09:00; Admin Dose 5,000 UNIT; Start 06/15/16 at 21:00 Miscellaneous Information 1 ea NOTE XX ; Start 06/15/16 at 14:30 Glucose (Glutose) 15 gm Q15M PRN PO DECREASED GLUCOSE; Start 06/15/16 at 14:30 Glucose (Glutose) 22.5 gm Q15M PRN PO DECREASED GLUCOSE; Start 06/15/16 at 14: 30 Dextrose (D50w Syringe) 25 ml Q15M PRN IV DECREASED GLUCOSE; Start 2/17/17 at 14:30 Dextrose (D50w Syringe) 50 ml Q15M PRN IV DECREASED GLUCOSE; Start 06/15/16 at 14:30 Glucagon (Glucagen) 1 mg Q15M PRN IM DECREASED GLUCOSE; Start 06/15/16 at 14:30 Glucose (Glutose) 15 gm Q15M PRN BUCCAL DECREASED GLUCOSE; Start 06/15/16 at 14 :30 Amiodarone HCl (Cordarone) 200 mg BID PO ; Start 06/17/16 at 21:00 Hydralazine HCl (Apresoline) 10 mg Q12 PO ; Start 06/17/16 at 21:00 JAIRO YUNG MD Jun 17, 2016 18:46
[2016-06-17] MEDS ORDERED: hydrALAzine 20 MG INJ IV PRN (19:00)
[2016-06-17] MEDS: AMIODARONE 200 MG TAB PO SCH (21:17)
[2016-06-17] MEDS: ATORVASTATIN 80 MG TAB PO SCH (21:17)
[2016-06-17] MEDS: traMADol 50 MG TAB PO PRN (21:28)
--- NOTE | 2016-06-17 21:47 | RADRPT ---
Vent Rate: 56 bpm RR Interval: 0 msec IA Interval: 232 msec QRS Duration: 142 msec QT Interval: 434 msec QTC Interval: 418 msec P-R-T [place]: 26 - 11 - 0 degrees Sinus bradycardia with 1st degree AV block Left bundle branch block Abnormal ECG Electronically Signed By: Hiram Weber [id number]
[2016-06-18] VITALS (12 sets, daily range): BP systolic 99–141; BP diastolic 57–83; PULSE 57–127; RESP 18–20
[2016-06-18] MEDS: PANTOPRAZOLE 40 MG INJ IV SCH (05:00)
[2016-06-18] MEDS: FUROSEMIDE 20 MG INJ IV SCH ×2 (05:00→18:08)
[2016-06-18 06:34] LABS: INR 1.26; PARTIAL THROMBOPLASTIN TIME 28.5 Sec (25.0-35.0); PROTIME 15.9 Sec (12.2-14.2); PT RATIO 1.2
[2016-06-18 06:43] LABS: POTASSIUM 4.6 mmol/L (3.5-5.1)
[2016-06-18 06:46] LABS: CREATININE 1.27 mg/dl (0.61-1.24)
[2016-06-18 06:47] LABS: CALCIUM 9.1 mg/dl (8.4-10.2)
[2016-06-18 07:16] LABS: BASOPHILS % 0.2 % (0.0-2.0); EOSINOPHILS % 0.8 % (0.0-7.0); HEMATOCRIT 31.2 % (42.0-52.0); HEMOGLOBIN 10.7 g/dl (14.0-18.0); LYMPHOCYTES # 0.9 10^3/ul (0.8-2.9); LYMPHOCYTES % 15.8 % (15.0-51.0); MEAN CORPUSCULAR HEMOGLOBIN 30.5 pg (29.0-33.0); MEAN CORPUSCULAR HGB CONC 34.2 g/dl (32.0-37.0); MEAN CORPUSCULAR VOLUME 89.2 fl (82.0-101.0); MEAN PLATELET VOLUME 9.7 fl (7.4-10.4); MONOCYTE # 0.5 10^3/ul (0.3-0.9); MONOCYTES % 8.7 % (0.0-11.0); NEUTROPHILS % 74.5 % (39.0-77.0); PLATELET COUNT 84 10^3/UL (140-440); RED CELL DISTRIBUTION WIDTH 14.4 % (11.5-14.5); UNCORRECTED WBC 5.4 10^3/ul (4.8-10.8); WHITE BLOOD COUNT 5.4 10^3/ul (4.8-10.8)
[2016-06-18 07:18] LABS: CONDITION 1
[2016-06-18] MEDS: CARBIDOPA/LEVODOPA (25/100) TAB PO SCH ×3 (08:56→21:52)
[2016-06-18] MEDS: CLOPIDOGREL 75 MG TAB PO SCH (08:56)
[2016-06-18] MEDS: TAMSULOSIN (SR) 0.4 MG CAP PO SCH (08:57)
[2016-06-18] MEDS: INSULIN ASPART [NOVOLOG] 3 ML PEN SC SCH ×4 (09:07→22:02)
[2016-06-18] MEDS: HEPARIN 5,000 UNIT/0.5 ML SYG SC SCH (09:08)
[2016-06-18] MEDS: SALMETEROL/FLUTICASONE 500/50 INHA INH SCH ×2 (09:09→21:53)
[2016-06-18] MEDS: AMIODARONE 200 MG TAB PO SCH ×2 (09:14→21:52)
--- NOTE | 2016-06-18 12:46 | CONS ---
Date/Time of Note Date/Time of Note DATE: 06/18/16 TIME: 12:43 Assessment/Plan Assessment/Plan Chief Complaint/Hosp Course IMPRESSION 1. Hypotension, assess for cardiac etiology versus sepsis-now improved and off of pressors 2. Wide complex tachycardia concerning for nonsustained ventricular tachycardia , more likely supraventricular tachycardia with baseline bundle branch block.- negative troponin x 3-Today in recurrent SVT to 130'a ? atypical flutter 3. Shortness of breath, assess for congestive heart failure. 4. Ischemic cardiomyopathy with decreased left ventricular ejection fraction, last known to be approximately 30% to 35% by echo 05/2015. 5. Chest pain, assess for acute coronary syndrome with a negative stress test 05/2015, EF of 39% at that time. 6. History of automatic implantable cardioverter-defibrillator, status post interrogation with a baseline rate of 45 and VVI mode with good battery life and no events. 7. Severe lower extremity edema. 8. Anemia. 9. Renal failure-slowly improving REcc: -Tele -serial ecg's. -Continue plavix -Continue lasix and follow volume status closely -Start PO amiodarone as tolerated in attempt to maintain/return to SR and will check 12 lead ecg to document rhythm and start lovenox SQ daily -Continue coreg Problems: Consultation Date/Type/Reason Admit Date/Time Jun 15, 2016 at 11:30 Initial Consult Date 06/15/16 Type of Consultation: Cardiology Reason for Consultation CHF/cmy/SVT Referring Provider: JAIRO YUNG MD Exam/Review of Systems Vital Signs Vitals Vital Signs Date Time Temp Pulse Resp B/P Pulse Ox O2 Delivery O2 Flow Rate FiO2 06/18/16 12:32 98.0 78 18 114/57 98 06/17/16 14:00 Mechanical Ventilator 06/16/16 02:00 2.0 06/15/16 21:34 30 Intake and Output 06/17/16 06/17/16 06/18/16 15:00 23:00 07:00 Intake Total 720 ml 150 ml 400 ml Output Total 800 ml 500 ml Balance -80 ml -350 ml 400 ml Exam Review of Systems: CONSTITUTIONAL: No fevers, chills. PULMONARY: No sob CARDIOVASCULAR: No chest pain/palpitations GASTROINTESTINAL: No nausea/vomiting. GENITOURINARY: No hematuria/dysuria. MUSCULOSKELETAL: No myagias/arthalgias. PSYCHIATRIC: The patient denies depression. NEUROLOGIC: Mild generalized weakness Constitutional: alert, oriented Psych: no complaints Head: normocephalic ENMT: mucosa pink and moist Respiratory: clear to auscultation Cardiovascular: other (tachycardic, regular rhythm) Gastrointestinal: non-tender, soft Musculoskeletal: muscle tone (normal) Extremities: edema (trace at ankles only) Neurological: lethargic Results Result Diagram: 06/18/16 0552 06/18/16 0552 Results 24 hrs Laboratory Tests Test 06/17/16 17:10 06/17/16 20:25 06/18/16 05:52 06/18/16 07:48 Bedside Glucose 171 210 155 Activated Partial Thromboplast Time 28.5 Anion Gap 18 H Basophils # 0.0 Basophils % 0.2 Blood Morphology Comment Blood Urea Nitrogen 24 H Calcium Level 9.1 Carbon Dioxide Level 26 Chloride Level 101 Creatinine 1.27 H Eosinophils # 0.0 Eosinophils % 0.8 Glucose Level 137 Hematocrit 31.2 L Hemoglobin 10.7 L INR International Normalized Ratio 1.26 Lymphocytes # 0.9 Lymphocytes % 15.8 Mean Corpuscular Hemoglobin 30.5 Mean Corpuscular Hemoglobin Concent 34.2 Mean Corpuscular Volume 89.2 Mean Platelet Volume 9.7 Monocytes # 0.5 Monocytes % 8.7 Neutrophils # 4.0 Neutrophils % 74.5 Nucleated Red Blood Cells # 0.0 Nucleated Red Blood Cells % 0.0 Platelet Count 84 #L Potassium Level 4.6 Prothrombin Time 15.9 H Prothrombin Time Ratio 1.2 Red Blood Count 3.50 L Red Cell Distribution Width 14.4 Sodium Level 140 White Blood Count 5.4 # Test 06/18/16 12:41 Bedside Glucose 246 H Medications Medications Current Medications Atorvastatin Calcium (Lipitor) 80 mg QHS PO Last administered on 06/17/16 21: 17; Admin Dose 80 MG; Start 06/15/16 at 21:00 Carbidopa/Levodopa (Sinemet (25/ 100)) 1 tab TID PO Last administered on 08:56; Admin Dose 1 TAB; Start 06/15/16 at 21:00 Carvedilol (Coreg) 3.125 mg BID PO Last administered on 06/18/16 08:58; Admin Dose 3.125 MG; Start 06/15/16 at 14:00 Clopidogrel Bisulfate (plaVIX) 75 mg DAILY PO Last administered on 06/18/16 08 :56; Admin Dose 75 MG; Start 06/16/16 at 09:00 Tramadol HCl (Ultram) 100 mg Q6H PRN PO Moderate PAIN Last administered on 06/17 21:28; Admin Dose 100 MG; Start 06/15/16 at 14:00 Tamsulosin HCl (Flomax) 0.4 mg DAILY PO Last administered on 06/18/16 08:57; Admin Dose 0.4 MG; Start 06/15/16 at 14:00 Salmeterol Xinafoate/ Fluticasone (Advair 500/50 Diskus) 1 inh BID INH Last administered on 06/18/16 09:09; Admin Dose 1 INH; Start 06/15/16 at 21:00 Ondansetron HCl (Zofran Inj) 4 mg Q4H PRN IV NAUSEA AND/OR VOMITING; Start at 14:00 Acetaminophen (Tylenol Tab) 650 mg Q6H PRN PO PAIN LEVEL 1-3 OR FEVER Last administered on 06/17/16 00:36; Admin Dose 650 MG; Start 06/15/16 at 14:00 Hydromorphone HCl (Dilaudid) 0.5 mg Q4H PRN IV SEVERE PAIN LEVEL 7-10; Start at 14:00 Docusate Sodium (Colace) 100 mg Q12H PRN PO CONSTIPATION; Start 06/15/16 at 14: 00 Magnesium Hydroxide (Milk Of Mag) 30 ml DAILY PRN PO CONSTIPATION; Start at 14:00 Bisacodyl (Dulcolax) 5 mg DAILY PRN PO CONSTIPATION; Start 06/15/16 at 14:00 Bisacodyl (Dulcolax Supp) 10 mg DAILY PRN [place] CONSTIPATION; Start 06/15/16 at 14 :00 Sodium Biphosphate/ Sodium Phosphate (Fleet Enema) 133 ml DAILY PRN [place] CONSTIPATION; Start 06/15/16 at 14:00 Zolpidem Tartrate (Ambien) 5 mg QHS PRN PO SLEEP; Start 06/15/16 at 14:00 Pantoprazole (Protonix Iv) 40 mg DAILY@06 IV Last administered on 06/18/16 05: 00; Admin Dose 40 MG; Start 06/16/16 at 06:00 Heparin Sodium (Porcine) (Heparin (5000 Units/0.5 ml)) 5,000 unit Q12 SC Last administered on 06/18/16 09:08; Admin Dose 5,000 UNIT; Start 06/15/16 at 21:00 Miscellaneous Information 1 ea NOTE XX ; Start 06/15/16 at 14:30 Glucose (Glutose) 15 gm Q15M PRN PO DECREASED GLUCOSE; Start 06/15/16 at 14:30 Glucose (Glutose) 22.5 gm Q15M PRN PO DECREASED GLUCOSE; Start 06/15/16 at 14: 30 Dextrose (D50w Syringe) 25 ml Q15M PRN IV DECREASED GLUCOSE; Start 06/15/16 at 14:30 Dextrose (D50w Syringe) 50 ml Q15M PRN IV DECREASED GLUCOSE; Start 06/15/16 at 14:30 Glucagon (Glucagen) 1 mg Q15M PRN IM DECREASED GLUCOSE; Start 06/15/16 at 14:30 Glucose (Glutose) 15 gm Q15M PRN BUCCAL DECREASED GLUCOSE; Start 06/15/16 at 14 :30 Amiodarone HCl (Cordarone) 200 mg BID PO Last administered on 06/18/16 09:14; Admin Dose 200 MG; Start 06/17/16 at 21:00 Hydralazine HCl (Apresoline) 25 mg BID PO Last administered on 06/18/16 08:57 ; Admin Dose 25 MG; Start 06/17/16 at 21:00 Hydralazine HCl (Apresoline) 10 mg Q4H PRN IV SBP>150 mm Hg ; Start 06/17/16 at 19:00 DIANN VO Jun 18, 2016 12:46
[2016-06-18] MEDS ORDERED: METOPROLOL 5 MG INJ IV PRN (13:00)
[2016-06-18] MEDS: ENOXAPARIN 60 MG/0.6 ML SYG SC SCH (13:00)
[2016-06-18] MEDS: ATORVASTATIN 80 MG TAB PO SCH (21:51)
[2016-06-18] MEDS: ACETAMINOPHEN 325 MG TAB PO PRN (21:51)
--- NOTE | 2016-06-18 22:39 | PN ---
Date/Time of Note Date/Time of Note DATE: 06/18/16 TIME: 22:37 Assessment/Plan VTE Prophylaxis VTE Prophylaxis Intervention: heparin Lines/Catheters IV Catheter Type (from Nrs): Saline Lock Urinary Cath still in place: No Assessment/Plan Assessment/Plan 1. Atrial fibrillation with rapid ventricular rate.- converted to SR overnight 2. Severe hypotension with systolic in 80s, likely secondary to cardiogenic shock. 3. Acute congestive heart failure exacerbation, acute on chronic, systolic. 4. History of ischemic cardiomyopathy, EF 25% to 30%, status post automatic implantable cardioverter-defibrillator placement. 5. History of hypertension. 6. History of hyperlipidemia. 7. History of diabetes mellitus. PLAN: converted to SR now - amiodarone drip has been stopped, BP stable,afebrile, IV lasix 20mg BID for diuresis Cardiology has been following Heparin for DVT prophylaxis Subjective 24 Hr Interval Summary Free Text/Dictation pt stable, HR controlled, no chest pain, no palpitation Exam/Review of Systems Vital Signs Vitals Vital Signs Date Time Temp Pulse Resp B/P Pulse Ox O2 Delivery O2 Flow Rate FiO2 06/18/16 20:41 98.3 129 20 141/71 96 06/17/16 14:00 Mechanical Ventilator 06/16/16 02:00 2.0 06/15/16 21:34 30 Intake and Output 06/17/16 06/17/16 06/18/16 15:00 23:00 07:00 Intake Total 720 ml 150 ml 400 ml Output Total 800 ml 500 ml Balance -80 ml -350 ml 400 ml Exam GENERAL: Awake, alert, HEENT: Oropharynx clear. Moist mucous membrane. NECK: Jugular venous distention up the mid neck and jaw. LUNGS: Decreased breath sounds at both lung bases. HEART: S1, S2,Regular rthythm ABDOMEN: Soft, nontender, nondistended. Bowel sounds are present. EXTREMITIES: No clubbing, cyanosis, or edema. NEUROLOGICAL: Nonfocal, intact. PSYCHIATRIC: Appropriate affect and mood. Results Result Diagram: 06/18/16 0552 06/18/16 0552 Results 24 hrs Laboratory Tests Test 06/18/16 05:52 06/18/16 07:48 06/18/16 12:41 06/18/16 18:06 Activated Partial Thromboplast Time 28.5 Anion Gap 18 H Basophils # 0.0 Basophils % 0.2 Blood Morphology Comment Blood Urea Nitrogen 24 H Calcium Level 9.1 Carbon Dioxide Level 26 Chloride Level 101 Creatinine 1.27 H Eosinophils # 0.0 Eosinophils % 0.8 Glucose Level 137 Hematocrit 31.2 L Hemoglobin 10.7 L INR International Normalized Ratio 1.26 Lymphocytes # 0.9 Lymphocytes % 15.8 Mean Corpuscular Hemoglobin 30.5 Mean Corpuscular Hemoglobin Concent 34.2 Mean Corpuscular Volume 89.2 Mean Platelet Volume 9.7 Monocytes # 0.5 Monocytes % 8.7 Neutrophils # 4.0 Neutrophils % 74.5 Nucleated Red Blood Cells # 0.0 Nucleated Red Blood Cells % 0.0 Platelet Count 84 #L Potassium Level 4.6 Prothrombin Time 15.9 H Prothrombin Time Ratio 1.2 Red Blood Count 3.50 L Red Cell Distribution Width 14.4 Sodium Level 140 White Blood Count 5.4 # Bedside Glucose 155 246 H 236 H Test 06/18/16 21:54 Bedside Glucose 265 H Medications Medications Current Medications Atorvastatin Calcium (Lipitor) 80 mg QHS PO Last administered on 06/18/16 21: 51; Admin Dose 80 MG; Start 06/15/16 at 21:00 Carbidopa/Levodopa (Sinemet (25/ 100)) 1 tab TID PO Last administered on 21:52; Admin Dose 1 TAB; Start 06/15/16 at 21:00 Carvedilol (Coreg) 3.125 mg BID PO Last administered on 06/18/16 21:52; Admin Dose 3.125 MG; Start 06/15/16 at 14:00 Clopidogrel Bisulfate (plaVIX) 75 mg DAILY PO Last administered on 06/18/16 08 :56; Admin Dose 75 MG; Start 06/16/16 at 09:00 Tramadol HCl (Ultram) 100 mg Q6H PRN PO Moderate PAIN Last administered on 06/17 21:28; Admin Dose 100 MG; Start 06/15/16 at 14:00 Tamsulosin HCl (Flomax) 0.4 mg DAILY PO Last administered on 06/18/16 08:57; Admin Dose 0.4 MG; Start 06/15/16 at 14:00 Salmeterol Xinafoate/ Fluticasone (Advair 500/50 Diskus) 1 inh BID INH Last administered on 06/18/16 21:53; Admin Dose 1 INH; Start 06/15/16 at 21:00 Ondansetron HCl (Zofran Inj) 4 mg Q4H PRN IV NAUSEA AND/OR VOMITING; Start at 14:00 Acetaminophen (Tylenol Tab) 650 mg Q6H PRN PO PAIN LEVEL 1-3 OR FEVER Last administered on 06/18/16 21:51; Admin Dose 650 MG; Start 06/15/16 at 14:00 Hydromorphone HCl (Dilaudid) 0.5 mg Q4H PRN IV SEVERE PAIN LEVEL 7-10; Start at 14:00 Docusate Sodium (Colace) 100 mg Q12H PRN PO CONSTIPATION Last administered on 15:28; Admin Dose 100 MG; Start 06/15/16 at 14:00 Magnesium Hydroxide (Milk Of Mag) 30 ml DAILY PRN PO CONSTIPATION; Start at 14:00 Bisacodyl (Dulcolax) 5 mg DAILY PRN PO CONSTIPATION; Start 06/15/16 at 14:00 Bisacodyl (Dulcolax Supp) 10 mg DAILY PRN [place] CONSTIPATION; Start 06/15/16 at 14 :00 Sodium Biphosphate/ Sodium Phosphate (Fleet Enema) 133 ml DAILY PRN [place] CONSTIPATION; Start 06/15/16 at 14:00 Zolpidem Tartrate (Ambien) 5 mg QHS PRN PO SLEEP; Start 06/15/16 at 14:00 Pantoprazole (Protonix Iv) 40 mg DAILY@06 IV Last administered on 06/18/16 05: 00; Admin Dose 40 MG; Start 06/16/16 at 06:00 Miscellaneous Information 1 ea NOTE XX ; Start 06/15/16 at 14:30 Glucose (Glutose) 15 gm Q15M PRN PO DECREASED GLUCOSE; Start 06/15/16 at 14:30 Glucose (Glutose) 22.5 gm Q15M PRN PO DECREASED GLUCOSE; Start 06/15/16 at 14: 30 Dextrose (D50w Syringe) 25 ml Q15M PRN IV DECREASED GLUCOSE; Start 06/15/16 at 14:30 Dextrose (D50w Syringe) 50 ml Q15M PRN IV DECREASED GLUCOSE; Start 06/15/16 at 14:30 Glucagon (Glucagen) 1 mg Q15M PRN IM DECREASED GLUCOSE; Start 06/15/16 at 14:30 Glucose (Glutose) 15 gm Q15M PRN BUCCAL DECREASED GLUCOSE; Start 06/15/16 at 14 :30 Amiodarone HCl (Cordarone) 200 mg BID PO Last administered on 06/18/16 21:52; Admin Dose 200 MG; Start 06/17/16 at 21:00 Hydralazine HCl (Apresoline) 25 mg BID PO Last administered on 06/18/16 21:52 ; Admin Dose 25 MG; Start 06/17/16 at 21:00 Hydralazine HCl (Apresoline) 10 mg Q4H PRN IV SBP>150 mm Hg ; Start 06/17/16 at 19:00 Enoxaparin Sodium (Lovenox) 60 mg DAILY SC ; Start 06/18/16 at 13:00 Metoprolol Tartrate (Lopressor) 5 mg Q4H PRN IV HR>110 Hold SBP<100; Start at 13:00 JAIRO YUNG MD Jun 18, 2016 22:38
[2016-06-19] VITALS (11 sets, daily range): BP systolic 113–130; BP diastolic 56–74; PULSE 52–60; RESP 18–20
[2016-06-19] MEDS: PANTOPRAZOLE 40 MG INJ IV SCH (06:45)
[2016-06-19] MEDS: FUROSEMIDE 20 MG INJ IV SCH (06:48)
[2016-06-19] MEDS: AMIODARONE 200 MG TAB PO SCH ×2 (09:00→22:05)
[2016-06-19] MEDS: CARBIDOPA/LEVODOPA (25/100) TAB PO SCH ×3 (09:37→22:00)
[2016-06-19] MEDS: SALMETEROL/FLUTICASONE 500/50 INHA INH SCH ×2 (09:37→21:48)
[2016-06-19] MEDS: TAMSULOSIN (SR) 0.4 MG CAP PO SCH (09:38)
[2016-06-19] MEDS: CLOPIDOGREL 75 MG TAB PO SCH (09:38)
[2016-06-19] MEDS: ENOXAPARIN 60 MG/0.6 ML SYG SC SCH (09:42)
[2016-06-19] MEDS: INSULIN ASPART [NOVOLOG] 3 ML PEN SC SCH ×4 (09:42→21:52)
[2016-06-19] MEDS: ACETAMINOPHEN 325 MG TAB PO PRN (10:17)
--- NOTE | 2016-06-19 11:07 | PN ---
Date/Time of Note Date/Time of Note DATE: 06/19/16 TIME: 11:03 Assessment/Plan VTE Prophylaxis VTE Prophylaxis Intervention: LMWH Lines/Catheters IV C[facility]ter Type (from [facility]): Saline Lock Urinary Cath still in place: No Assessment/Plan Assessment/Plan 1. Atrial fibrillation with rapid ventricular rate.- converted to Sins rthythm 2. Severe hypotension with systolic in 80s, likely secondary to cardiogenic shock.- no w resolved 3. Acute congestive heart failure exacerbation, acute on chronic, systolic. 4. History of ischemic cardiomyopathy, EF 25% to 30%, status post automatic implantable cardioverter-defibrillator placement. 5. History of hypertension. 6. History of hyperlipidemia. 7. History of diabetes mellitus. PLAN: converted to SR now - no won coreg, MTP IV prn- change lasix to 40 mg po daily downgrade to med/surge floor Cardiology has been following on lovenox 60mg SQ daily Subjective 24 Hr Interval Summary Free Text/Dictation HR in 55, no episode of bradycardia Exam/Review of Systems Vital Signs Vitals Vital Signs Date Time Temp Pulse Resp B/P Pulse Ox O2 Delivery O2 Flow Rate FiO2 06/19/16 08:42 54 06/19/16 07:23 97.8 18 129/63 96 06/19/16 04:00 Room Air 06/16/16 02:00 2.0 06/15/16 21:34 30 Intake and Output 06/18/16 06/18/16 06/19/16 15:00 23:00 07:00 Intake Total 700 ml 350 ml Output Total 1500 ml 1250 ml Balance -800 ml -900 ml Results Result Diagram: 06/18/16 0552 06/18/16 0552 Results 24 hrs Laboratory Tests Test 06/18/16 12:41 06/18/16 18:06 06/18/16 21:54 06/19/16 08:00 Bedside Glucose 246 H 236 H 265 H 174 Medications Medications Current Medications Atorvastatin Calcium (Lipitor) 80 mg QHS PO Last administered on 06/18/16 21: 51; Admin Dose 80 MG; Start 06/15/16 at 21:00 Carbidopa/Levodopa (Sinemet (25/ 100)) 1 tab TID PO Last administered on 09:37; Admin Dose 1 TAB; Start 06/15/16 at 21:00 Carvedilol (Coreg) 3.125 mg BID PO Last administered on 06/18/16 21:52; Admin Dose 3.125 MG; Start 06/15/16 at 14:00 Clopidogrel Bisulfate (plaVIX) 75 mg DAILY PO Last administered on 06/19/16 09 :38; Admin Dose 75 MG; Start 06/16/16 at 09:00 Tramadol HCl (Ultram) 100 mg Q6H PRN PO Moderate PAIN Last administered on 06/17 21:28; Admin Dose 100 MG; Start 06/15/16 at 14:00 Tamsulosin HCl (Flomax) 0.4 mg DAILY PO Last administered on 06/19/16 09:38; Admin Dose 0.4 MG; Start 06/15/16 at 14:00 Salmeterol Xinafoate/ Fluticasone (Advair 500/50 Diskus) 1 inh BID INH Last administered on 06/19/16 09:37; Admin Dose 1 INH; Start 06/15/16 at 21:00 Ondansetron HCl (Zofran Inj) 4 mg Q4H PRN IV NAUSEA AND/OR VOMITING; Start at 14:00 Acetaminophen (Tylenol Tab) 650 mg Q6H PRN PO PAIN LEVEL 1-3 OR FEVER Last administered on 06/19/16 10:17; Admin Dose 650 MG; Start 06/15/16 at 14:00 Hydromorphone HCl (Dilaudid) 0.5 mg Q4H PRN IV SEVERE PAIN LEVEL 7-10; Start at 14:00 Docusate Sodium (Colace) 100 mg Q12H PRN PO CONSTIPATION Last administered on 15:28; Admin Dose 100 MG; Start 06/15/16 at 14:00 Magnesium Hydroxide (Milk Of Mag) 30 ml DAILY PRN PO CONSTIPATION; Start at 14:00 Bisacodyl (Dulcolax) 5 mg DAILY PRN PO CONSTIPATION; Start 06/15/16 at 14:00 Bisacodyl (Dulcolax Supp) 10 mg DAILY PRN [place] CONSTIPATION; Start 06/15/16 at 14 :00 Sodium Biphosphate/ Sodium Phosphate (Fleet Enema) 133 ml DAILY PRN [place] CONSTIPATION; Start 06/15/16 at 14:00 Zolpidem Tartrate (Ambien) 5 mg QHS PRN PO SLEEP; Start 06/15/16 at 14:00 Pantoprazole (Protonix Iv) 40 mg DAILY@06 IV Last administered on 06/19/16 06: 45; Admin Dose 40 MG; Start 06/16/16 at 06:00 Miscellaneous Information 1 ea NOTE XX ; Start 06/15/16 at 14:30 Glucose (Glutose) 15 gm Q15M PRN PO DECREASED GLUCOSE; Start 06/15/16 at 14:30 Glucose (Glutose) 22.5 gm Q15M PRN PO DECREASED GLUCOSE; Start 06/15/16 at 14: 30 Dextrose (D50w Syringe) 25 ml Q15M PRN IV DECREASED GLUCOSE; Start 06/15/16 at 14:30 Dextrose (D50w Syringe) 50 ml Q15M PRN IV DECREASED GLUCOSE; Start 06/15/16 at 14:30 Glucagon (Glucagen) 1 mg Q15M PRN IM DECREASED GLUCOSE; Start 06/15/16 at 14:30 Glucose (Glutose) 15 gm Q15M PRN BUCCAL DECREASED GLUCOSE; Start 06/15/16 at 14 :30 Amiodarone HCl (Cordarone) 200 mg BID PO Last administered on 06/18/16 21:52; Admin Dose 200 MG; Start 06/17/16 at 21:00 Hydralazine HCl (Apresoline) 25 mg BID PO Last administered on 06/19/16 09:37 ; Admin Dose 25 MG; Start 06/17/16 at 21:00 Hydralazine HCl (Apresoline) 10 mg Q4H PRN IV SBP>150 mm Hg ; Start 06/17/16 at 19:00 Enoxaparin Sodium (Lovenox) 60 mg DAILY SC Last administered on 06/19/16 09:42 ; Admin Dose 60 MG; Start 06/18/16 at 13:00 Metoprolol Tartrate (Lopressor) 5 mg Q4H PRN IV HR>110 Hold SBP<100; Start at 13:00 JAIRO YUNG MD Jun 19, 2016 11:07
--- NOTE | 2016-06-19 15:14 | CONS ---
Date/Time of Note Date/Time of Note DATE: 06/19/16 TIME: 15:09 Assessment/Plan Assessment/Plan Chief Complaint/Hosp Course IMPRESSION 1. Hypotension, assess for cardiac etiology versus sepsis-now improved and off of pressors 2. Wide complex tachycardia concerning for nonsustained ventricular tachycardia , more likely supraventricular tachycardia with baseline bundle branch block.- negative troponin x 3-Has had recurrent SVT to 130'a ? atypical AFL now back in SR 3. Shortness of breath, assess for congestive heart failure. 4. Ischemic cardiomyopathy with decreased left ventricular ejection fraction, last known to be approximately 30% to 35% by echo 05/2015. 5. Chest pain, assess for acute coronary syndrome with a negative stress test 05/2015, EF of 39% at that time. 6. History of automatic implantable cardioverter-defibrillator, status post interrogation with a baseline rate of 45 and VVI mode with good battery life and no events. 7. Severe lower extremity edema.-improving significantly 8. Anemia. 9. Renal failure-slowly improving 10. CHF-systolic acute on chronic-improving volume status REcc: -Tele -serial ecg's. -Continue plavix -Continue lasix and follow volume status closely -Contiue PO amiodarone/lovenox -Continue coreg as tolerated only Problems: Consultation Date/Type/Reason Admit Date/Time Jun 15, 2016 at 11:30 Initial Consult Date 06/15/16 Type of Consultation: Cardiology Reason for Consultation AF/CHF Referring Provider: JAIRO YUNG MD Exam/Review of Systems Vital Signs Vitals Vital Signs Date Time Temp Pulse Resp B/P Pulse Ox O2 Delivery O2 Flow Rate FiO2 06/19/16 12:17 55 06/19/16 11:28 98.1 18 118/56 97 06/19/16 04:00 Room Air 06/16/16 02:00 2.0 06/15/16 21:34 30 Intake and Output 06/18/16 06/18/16 06/19/16 15:00 23:00 07:00 Intake Total 700 ml 350 ml Output Total 1500 ml 1250 ml Balance -800 ml -900 ml Exam Review of Systems: CONSTITUTIONAL: No fevers, chills. PULMONARY: No sob CARDIOVASCULAR: No chest pain/palpitations GASTROINTESTINAL: No nausea/vomiting. GENITOURINARY: No hematuria/dysuria. MUSCULOSKELETAL: No myagias/arthalgias. PSYCHIATRIC: The patient denies depression. NEUROLOGIC: lethargic Constitutional: alert, oriented Psych: no complaints Head: normocephalic ENMT: mucosa pink and moist Neck: jvd (9 cm water), supple Respiratory: diminished breath sounds Cardiovascular: other (bradycardic regular rhythm) Gastrointestinal: non-tender, soft Musculoskeletal: muscle tone (normal) Extremities: edema (none) Neurological: other (No focal deficits) Results Result Diagram: 06/18/16 0506/18/16 0552 Results 24 hrs Laboratory Tests Test 06/18/16 18:06 06/18/16 21:54 06/19/16 08:00 06/19/16 12:05 Bedside Glucose 236 H 265 H 174 236 H Medications Medications Current Medications Atorvastatin Calcium (Lipitor) 80 mg QHS PO Last administered on 06/18/16 21: 51; Admin Dose 80 MG; Start 06/15/16 at 21:00 Carbidopa/Levodopa (Sinemet (25/ 100)) 1 tab TID PO Last administered on 12:54; Admin Dose 1 TAB; Start 06/15/16 at 21:00 Carvedilol (Coreg) 3.125 mg BID PO Last administered on 06/18/16 21:52; Admin Dose 3.125 MG; Start 06/15/16 at 14:00 Clopidogrel Bisulfate (plaVIX) 75 mg DAILY PO Last administered on 06/19/16 09 :38; Admin Dose 75 MG; Start 06/16/16 at 09:00 Tramadol HCl (Ultram) 100 mg Q6H PRN PO Moderate PAIN Last administered on 06/17 21:28; Admin Dose 100 MG; Start 06/15/16 at 14:00 Tamsulosin HCl (Flomax) 0.4 mg DAILY PO Last administered on 06/19/16 09:38; Admin Dose 0.4 MG; Start 06/15/16 at 14:00 Salmeterol Xinafoate/ Fluticasone (Advair 500/50 Diskus) 1 inh BID INH Last administered on 06/19/16 09:37; Admin Dose 1 INH; Start 06/15/16 at 21:00 Ondansetron HCl (Zofran Inj) 4 mg Q4H PRN IV NAUSEA AND/OR VOMITING; Start at 14:00 Acetaminophen (Tylenol Tab) 650 mg Q6H PRN PO PAIN LEVEL 1-3 OR FEVER Last administered on 06/19/16 10:17; Admin Dose 650 MG; Start 06/15/16 at 14:00 Hydromorphone HCl (Dilaudid) 0.5 mg Q4H PRN IV SEVERE PAIN LEVEL 7-10; Start at 14:00 Docusate Sodium (Colace) 100 mg Q12H PRN PO CONSTIPATION Last administered on 15:28; Admin Dose 100 MG; Start 06/15/16 at 14:00 Magnesium Hydroxide (Milk Of Mag) 30 ml DAILY PRN PO CONSTIPATION; Start at 14:00 Bisacodyl (Dulcolax) 5 mg DAILY PRN PO CONSTIPATION; Start 06/15/16 at 14:00 Bisacodyl (Dulcolax Supp) 10 mg DAILY PRN [place] CONSTIPATION; Start 06/15/16 at 14 :00 Sodium Biphosphate/ Sodium Phosphate (Fleet Enema) 133 ml DAILY PRN [place] CONSTIPATION; Start 06/15/16 at 14:00 Zolpidem Tartrate (Ambien) 5 mg QHS PRN PO SLEEP; Start 06/15/16 at 14:00 Pantoprazole (Protonix Iv) 40 mg DAILY@06 IV Last administered on 06/19/16 06: 45; Admin Dose 40 MG; Start 06/16/16 at 06:00 Miscellaneous Information 1 ea NOTE XX ; Start 06/15/16 at 14:30 Glucose (Glutose) 15 gm Q15M PRN PO DECREASED GLUCOSE; Start 06/15/16 at 14:30 Glucose (Glutose) 22.5 gm Q15M PRN PO DECREASED GLUCOSE; Start 06/15/16 at 14: 30 Dextrose (D50w Syringe) 25 ml Q15M PRN IV DECREASED GLUCOSE; Start 06/15/16 at 14:30 Dextrose (D50w Syringe) 50 ml Q15M PRN IV DECREASED GLUCOSE; Start 06/15/16 at 14:30 Glucagon (Glucagen) 1 mg Q15M PRN IM DECREASED GLUCOSE; Start 06/15/16 at 14:30 Glucose (Glutose) 15 gm Q15M PRN BUCCAL DECREASED GLUCOSE; Start 06/15/16 at 14 :30 Amiodarone HCl (Cordarone) 200 mg BID PO Last administered on 06/18/16 21:52; Admin Dose 200 MG; Start 06/17/16 at 21:00 Hydralazine HCl (Apresoline) 25 mg BID PO Last administered on 06/19/16 09:37 ; Admin Dose 25 MG; Start 06/17/16 at 21:00 Enoxaparin Sodium (Lovenox) 60 mg DAILY SC Last administered on 06/19/16 09:42 ; Admin Dose 60 MG; Start 06/18/16 at 13:00 Hydralazine HCl (Apresoline) 25 mg Q6H PRN PO SBP>150 mm hg ; Start 06/19/16 at 11:30 Furosemide (Lasix) 40 mg DAILY PO ; Start 06/20/16 at 09:00 DIANN VO Jun 19, 2016 15:14
[2016-06-19] MEDS: ATORVASTATIN 80 MG TAB PO SCH (22:00)
[2016-06-20] MEDS: ACETAMINOPHEN 325 MG TAB PO PRN ×3 (00:28→22:23)
[2016-06-20] MEDS: PANTOPRAZOLE (EC) 40 MG TAB PO SCH (05:19)
[2016-06-20 07:16] VITALS: BP 149/67; RESP 18
[2016-06-20 07:51] LABS: INR 1.25; POTASSIUM 4.7 mmol/L (3.5-5.1); PROTIME 15.8 Sec (12.2-14.2); PT RATIO 1.2
[2016-06-20 07:52] LABS: PARTIAL THROMBOPLASTIN TIME 30.2 Sec (25.0-35.0)
[2016-06-20 07:53] LABS: CREATININE 1.28 mg/dl (0.61-1.24)
[2016-06-20 07:54] LABS: CALCIUM 9.1 mg/dl (8.4-10.2)
[2016-06-20] MEDS: INSULIN ASPART [NOVOLOG] 3 ML PEN SC SCH ×4 (08:07→22:47)
[2016-06-20] MEDS: AMIODARONE 200 MG TAB PO SCH ×2 (08:26→22:05)
[2016-06-20] MEDS: SALMETEROL/FLUTICASONE 500/50 INHA INH SCH ×2 (08:26→22:00)
[2016-06-20] MEDS: FUROSEMIDE 40 MG TAB PO SCH (08:27)
[2016-06-20] MEDS: traMADol 50 MG TAB PO PRN (08:27)
[2016-06-20] MEDS: CLOPIDOGREL 75 MG TAB PO SCH (08:27)
[2016-06-20] MEDS: CARBIDOPA/LEVODOPA (25/100) TAB PO SCH ×3 (08:27→22:01)
[2016-06-20] MEDS: TAMSULOSIN (SR) 0.4 MG CAP PO SCH (08:28)
[2016-06-20] MEDS: ENOXAPARIN 60 MG/0.6 ML SYG SC SCH (08:30)
[2016-06-20 09:44] LABS: BASOPHILS % 0.3 % (0.0-2.0); EOSINOPHILS % 1.3 % (0.0-7.0); HEMATOCRIT 28.4 % (42.0-52.0); HEMOGLOBIN 9.9 g/dl (14.0-18.0); LYMPHOCYTES # 0.7 10^3/ul (0.8-2.9); MEAN CORPUSCULAR HEMOGLOBIN 30.7 pg (29.0-33.0); MEAN CORPUSCULAR VOLUME 87.7 fl (82.0-101.0); MEAN PLATELET VOLUME 9.7 fl (7.4-10.4); MONOCYTE # 0.3 10^3/ul (0.3-0.9); MONOCYTES % 7.3 % (0.0-11.0); NEUTROPHIL # 2.8 10^3/ul (1.6-7.5); NEUTROPHILS % 72.1 % (39.0-77.0); PLATELET COUNT 78 10^3/UL (140-440); RED BLOOD COUNT 3.24 10^6/ul (4.70-6.10); RED CELL DISTRIBUTION WIDTH 14.9 % (11.5-14.5); UNCORRECTED WBC 3.9 10^3/ul (4.8-10.8); WHITE BLOOD COUNT 3.9 10^3/ul (4.8-10.8)
[2016-06-20 09:46] LABS: CONDITION 1; LH ANALYZER COMMENTS 1
--- NOTE | 2016-06-20 10:56 | PN ---
Date/Time of Note Date/Time of Note DATE: 06/20/16 TIME: 10:55 Assessment/Plan VTE Prophylaxis VTE Prophylaxis Intervention: LMWH Lines/Catheters IV Catheter Type (from [facility]): [facility] Urinary Cath still in place: No Assessment/Plan Assessment/Plan 1. Atrial fibrillation with rapid ventricular rate.- converted to Sins rthythm 2. Severe hypotension with systolic in 80s, likely secondary to cardiogenic shock.- no w resolved 3. Acute congestive heart failure exacerbation, acute on chronic, systolic. 4. History of ischemic cardiomyopathy, EF 25% to 30%, status post automatic implantable cardioverter-defibrillator placement. 5. History of hypertension. 6. History of hyperlipidemia. 7. History of diabetes mellitus. PLAN: converted to SR now - no won coreg, MTP IV prn- change lasix to 40 mg po daily downgrade to med/surge floor Cardiology has been following on lovenox 60mg SQ daily Subjective 24 Hr Interval Summary Free Text/Dictation remained stable, no complaints, downgrade to med/surge, HR still up and down Exam/Review of Systems Vital Signs Vitals Vital Signs Date Time Temp Pulse Resp B/P Pulse Ox O2 Delivery O2 Flow Rate FiO2 06/20/16 07:16 98.1 70 18 149/67 97 06/19/16 04:00 Room Air Intake and Output 06/19/16 06/19/16 06/20/16 15:00 23:00 07:00 Intake Total 1020 ml 150 ml Output Total 1025 ml 500 ml Balance -5 ml -350 ml Exam GENERAL: Awake, alert, HEENT: Oropharynx clear. Moist mucous membrane. NECK: Jugular venous distention up the mid neck and jaw. LUNGS: Decreased breath sounds at both lung bases. HEART: S1, S2,Regular rthythm ABDOMEN: Soft, nontender, nondistended. Bowel sounds are present. EXTREMITIES: No clubbing, cyanosis, or edema. NEUROLOGICAL: Nonfocal, intact. PSYCHIATRIC: Appropriate affect and mood. Results Result Diagram: 06/20/1670406/20/16704 Results 24 hrs Laboratory Tests Test 06/19/16 12:05 06/19/16 17:03 06/19/16 21:50 06/20/16 02:04 Bedside Glucose 236 H 263 H 208 226 H Test 06/20/16 07:05 06/20/16 07:31 Activated Partial Thromboplast Time 30.2 Anion Gap 15 Basophils # 0.0 Basophils % 0.3 Blood Morphology Comment Blood Urea Nitrogen 27 H Calcium Level 9.1 Carbon Dioxide Level 30 Chloride Level 99 Creatinine 1.28 H Eosinophils # 0.0 Eosinophils % 1.3 Glucose Level 184 Hematocrit 28.4 L Hemoglobin 9.9 L INR International Normalized Ratio 1.25 Lymphocytes # 0.7 L Lymphocytes % 19.0 Mean Corpuscular Hemoglobin 30.7 Mean Corpuscular Hemoglobin Concent 35.0 Mean Corpuscular Volume 87.7 Mean Platelet Volume 9.7 Monocytes # 0.3 Monocytes % 7.3 Neutrophils # 2.8 Neutrophils % 72.1 Nucleated Red Blood Cells # 0.0 Nucleated Red Blood Cells % 0.0 Platelet Count 78 L Potassium Level 4.7 Prothrombin Time 15.8 H Prothrombin Time Ratio 1.2 Red Blood Count 3.24 L Red Cell Distribution Width 14.9 H Sodium Level 139 White Blood Count 3.9 #L Bedside Glucose 212 Medications Medications Current Medications Atorvastatin Calcium (Lipitor) 80 mg QHS PO Last administered on 06/19/16 22: 00; Admin Dose 80 MG; Start 06/15/16 at 21:00 Carbidopa/Levodopa (Sinemet (25/ 100)) 1 tab TID PO Last administered on 08:27; Admin Dose 1 TAB; Start 06/15/16 at 21:00 Carvedilol (Coreg) 3.125 mg BID PO Last administered on 06/20/16 08:27; Admin Dose 3.125 MG; Start 06/15/16 at 14:00 Clopidogrel Bisulfate (plaVIX) 75 mg DAILY PO Last administered on 06/20/16 08 :27; Admin Dose 75 MG; Start 06/16/16 at 09:00 Tramadol HCl (Ultram) 100 mg Q6H PRN PO Moderate PAIN Last administered on 06/20 08:27; Admin Dose 100 MG; Start 06/15/16 at 14:00 Tamsulosin HCl (Flomax) 0.4 mg DAILY PO Last administered on 06/20/16 08:28; Admin Dose 0.4 MG; Start 06/15/16 at 14:00 Salmeterol Xinafoate/ Fluticasone (Advair 500/50 Diskus) 1 inh BID INH Last administered on 06/20/16 08:26; Admin Dose 1 INH; Start 06/15/16 at 21:00 Ondansetron HCl (Zofran Inj) 4 mg Q4H PRN IV NAUSEA AND/OR VOMITING; Start at 14:00 Acetaminophen (Tylenol Tab) 650 mg Q6H PRN PO PAIN LEVEL 1-3 OR FEVER Last administered on 06/20/16 00:28; Admin Dose 650 MG; Start 06/15/16 at 14:00 Hydromorphone HCl (Dilaudid) 0.5 mg Q4H PRN IV SEVERE PAIN LEVEL 7-10; Start at 14:00 Docusate Sodium (Colace) 100 mg Q12H PRN PO CONSTIPATION Last administered on 15:28; Admin Dose 100 MG; Start 06/15/16 at 14:00 Magnesium Hydroxide (Milk Of Mag) 30 ml DAILY PRN PO CONSTIPATION; Start at 14:00 Bisacodyl (Dulcolax) 5 mg DAILY PRN PO CONSTIPATION; Start 06/15/16 at 14:00 Bisacodyl (Dulcolax Supp) 10 mg DAILY PRN [place] CONSTIPATION; Start 06/15/16 at 14 :00 Sodium Biphosphate/ Sodium Phosphate (Fleet Enema) 133 ml DAILY PRN [place] CONSTIPATION; Start 06/15/16 at 14:00 Zolpidem Tartrate (Ambien) 5 mg QHS PRN PO SLEEP; Start 06/15/16 at 14:00 Miscellaneous Information 1 ea NOTE XX ; Start 06/15/16 at 14:30 Glucose (Glutose) 15 gm Q15M PRN PO DECREASED GLUCOSE; Start 06/15/16 at 14:30 Glucose (Glutose) 22.5 gm Q15M PRN PO DECREASED GLUCOSE; Start 06/15/16 at 14: 30 Dextrose (D50w Syringe) 25 ml Q15M PRN IV DECREASED GLUCOSE; Start 06/15/16 at 14:30 Dextrose (D50w Syringe) 50 ml Q15M PRN IV DECREASED GLUCOSE; Start 06/15/16 at 14:30 Glucagon (Glucagen) 1 mg Q15M PRN IM DECREASED GLUCOSE; Start 06/15/16 at 14:30 Glucose (Glutose) 15 gm Q15M PRN BUCCAL DECREASED GLUCOSE; Start 06/15/16 at 14 :30 Amiodarone HCl (Cordarone) 200 mg BID PO Last administered on 06/20/16 08:26; Admin Dose 200 MG; Start 06/17/16 at 21:00 Hydralazine HCl (Apresoline) 25 mg BID PO Last administered on 06/20/16 08:26 ; Admin Dose 25 MG; Start 06/17/16 at 21:00 Enoxaparin Sodium (Lovenox) 60 mg DAILY SC Last administered on 06/20/16 08:30 ; Admin Dose 60 MG; Start 06/18/16 at 13:00 Hydralazine HCl (Apresoline) 25 mg Q6H PRN PO SBP>150 mm hg ; Start 06/19/16 at 11:30 Furosemide (Lasix) 40 mg DAILY PO Last administered on 06/20/16 08:27; Admin Dose 40 MG; Start 06/20/16 at 09:00 Pantoprazole (Protonix Tab) 40 mg DAILY@06 PO Last administered on 06/20/16 05 :19; Admin Dose 40 MG; Start 06/20/16 at 06:00 JAIRO YUNG MD Jun 20, 2016 10:56
[2016-06-20 11:18] VITALS: BP 135/68; RESP 18
--- NOTE | 2016-06-20 13:57 | CONS ---
Date/Time of Note Date/Time of Note DATE: 06/20/16 TIME: 13:53 Assessment/Plan Assessment/Plan Chief Complaint/Hosp Course IMPRESSION 1. Hypotension, assess for cardiac etiology versus sepsis-now improved and off of pressors 2. Wide complex tachycardia concerning for nonsustained ventricular tachycardia , more likely supraventricular tachycardia with baseline bundle branch block.- negative troponin x 3-Has had recurrent SVT to 130'a ? atypical AFL now back in SR 3. Shortness of breath, assess for congestive heart failure. 4. Ischemic cardiomyopathy with decreased left ventricular ejection fraction, last known to be approximately 30% to 35% by echo 05/2015. 5. Chest pain, assess for acute coronary syndrome with a negative stress test 05/2015, EF of 39% at that time. 6. History of automatic implantable cardioverter-defibrillator, status post interrogation with a baseline rate of 45 and VVI mode with good battery life and no events. 7. Severe lower extremity edema.-improving significantly 8. Anemia. 9. Renal failure-slowly improving 10. CHF-systolic acute on chronic-improving volume status REcc: -Now med-surg -serial ecg's. -Continue plavix -Continue lasix and follow volume status closely -Continue PO amiodarone/lovenox with transition to apixaban at D/C to preven thromboembolic complications in setting of PAF/AFL -Continue coreg as tolerated only Problems: Consultation Date/Type/Reason Admit Date/Time Jun 15, 2016 at 11:30 Initial Consult Date 06/15/16 Type of Consultation: Cardiology Reason for Consultation SVT Referring Provider: JAIRO YUNG MD Exam/Review of Systems Vital Signs Vitals Vital Signs Date Time Temp Pulse Resp B/P Pulse Ox O2 Delivery O2 Flow Rate FiO2 06/20/16 11:18 98.1 59 18 135/68 97 06/19/16 04:00 Room Air Intake and Output 06/19/16 06/19/16 06/20/16 15:00 23:00 07:00 Intake Total 1020 ml 150 ml Output Total 1025 ml 500 ml Balance -5 ml -350 ml Exam Review of Systems: CONSTITUTIONAL: No fevers, chills. PULMONARY: No sob CARDIOVASCULAR: No chest pain/palpitations GASTROINTESTINAL: No nausea/vomiting. GENITOURINARY: No hematuria/dysuria. MUSCULOSKELETAL: No myagias/arthalgias. PSYCHIATRIC: The patient denies depression. NEUROLOGIC: No weakness Constitutional: alert Psych: no complaints Head: normocephalic ENMT: mucosa pink and moist Neck: jvd (9 cm water), supple Respiratory: diminished breath sounds (at bases/B) Cardiovascular: regular rate and rhythm Gastrointestinal: non-tender, soft Musculoskeletal: muscle tone (normal) Extremities: edema (none) Neurological: other (No focal deficits) Results Result Diagram: 06/20/1670406/20/16704 Results 24 hrs Laboratory Tests Test 06/19/16 17:03 06/19/16 21:50 06/20/16 02:04 06/20/16 07:05 Bedside Glucose 263 H 208 226 H Activated Partial Thromboplast Time 30.2 Anion Gap 15 Basophils # 0.0 Basophils % 0.3 Blood Morphology Comment Blood Urea Nitrogen 27 H Calcium Level 9.1 Carbon Dioxide Level 30 Chloride Level 99 Creatinine 1.28 H Eosinophils # 0.0 Eosinophils % 1.3 Glucose Level 184 Hematocrit 28.4 L Hemoglobin 9.9 L INR International Normalized Ratio 1.25 Lymphocytes # 0.7 L Lymphocytes % 19.0 Mean Corpuscular Hemoglobin 30.7 Mean Corpuscular Hemoglobin Concent 35.0 Mean Corpuscular Volume 87.7 Mean Platelet Volume 9.7 Monocytes # 0.3 Monocytes % 7.3 Neutrophils # 2.8 Neutrophils % 72.1 Nucleated Red Blood Cells # 0.0 Nucleated Red Blood Cells % 0.0 Platelet Count 78 L Potassium Level 4.7 Prothrombin Time 15.8 H Prothrombin Time Ratio 1.2 Red Blood Count 3.24 L Red Cell Distribution Width 14.9 H Sodium Level 139 White Blood Count 3.9 #L Test 06/20/16 07:31 06/20/16 12:14 Bedside Glucose 212 228 H Medications Medications Current Medications Atorvastatin Calcium (Lipitor) 80 mg QHS PO Last administered on 06/19/16 22: 00; Admin Dose 80 MG; Start 06/15/16 at 21:00 Carbidopa/Levodopa (Sinemet (25/ 100)) 1 tab TID PO Last administered on 12:30; Admin Dose 1 TAB; Start 06/15/16 at 21:00 Carvedilol (Coreg) 3.125 mg BID PO Last administered on 06/20/16 08:27; Admin Dose 3.125 MG; Start 06/15/16 at 14:00 Clopidogrel Bisulfate (plaVIX) 75 mg DAILY PO Last administered on 06/20/16 08 :27; Admin Dose 75 MG; Start 06/16/16 at 09:00 Tramadol HCl (Ultram) 100 mg Q6H PRN PO Moderate PAIN Last administered on 06/20 08:27; Admin Dose 100 MG; Start 06/15/16 at 14:00 Tamsulosin HCl (Flomax) 0.4 mg DAILY PO Last administered on 06/20/16 08:28; Admin Dose 0.4 MG; Start 06/15/16 at 14:00 Salmeterol Xinafoate/ Fluticasone (Advair 500/50 Diskus) 1 inh BID INH Last administered on 06/20/16 08:26; Admin Dose 1 INH; Start 06/15/16 at 21:00 Ondansetron HCl (Zofran Inj) 4 mg Q4H PRN IV NAUSEA AND/OR VOMITING; Start at 14:00 Acetaminophen (Tylenol Tab) 650 mg Q6H PRN PO PAIN LEVEL 1-3 OR FEVER Last administered on 06/20/16 12:30; Admin Dose 650 MG; Start 06/15/16 at 14:00 Hydromorphone HCl (Dilaudid) 0.5 mg Q4H PRN IV SEVERE PAIN LEVEL 7-10; Start at 14:00 Docusate Sodium (Colace) 100 mg Q12H PRN PO CONSTIPATION Last administered on 15:28; Admin Dose 100 MG; Start 06/15/16 at 14:00 Magnesium Hydroxide (Milk Of Mag) 30 ml DAILY PRN PO CONSTIPATION; Start at 14:00 Bisacodyl (Dulcolax) 5 mg DAILY PRN PO CONSTIPATION; Start 06/15/16 at 14:00 Bisacodyl (Dulcolax Supp) 10 mg DAILY PRN [place] CONSTIPATION; Start 06/15/16 at 14 :00 Sodium Biphosphate/ Sodium Phosphate (Fleet Enema) 133 ml DAILY PRN [place] CONSTIPATION; Start 06/15/16 at 14:00 Zolpidem Tartrate (Ambien) 5 mg QHS PRN PO SLEEP; Start 06/15/16 at 14:00 Miscellaneous Information 1 ea NOTE XX ; Start 06/15/16 at 14:30 Glucose (Glutose) 15 gm Q15M PRN PO DECREASED GLUCOSE; Start 06/15/16 at 14:30 Glucose (Glutose) 22.5 gm Q15M PRN PO DECREASED GLUCOSE; Start 06/15/16 at 14: 30 Dextrose (D50w Syringe) 25 ml Q15M PRN IV DECREASED GLUCOSE; Start 06/15/16 at 14:30 Dextrose (D50w Syringe) 50 ml Q15M PRN IV DECREASED GLUCOSE; Start 06/15/16 at 14:30 Glucagon (Glucagen) 1 mg Q15M PRN IM DECREASED GLUCOSE; Start 06/15/16 at 14:30 Glucose (Glutose) 15 gm Q15M PRN BUCCAL DECREASED GLUCOSE; Start 06/15/16 at 14 :30 Amiodarone HCl (Cordarone) 200 mg BID PO Last administered on 06/20/16 08:26; Admin Dose 200 MG; Start 06/17/16 at 21:00 Hydralazine HCl (Apresoline) 25 mg BID PO Last administered on 06/20/16 08:26 ; Admin Dose 25 MG; Start 06/17/16 at 21:00 Enoxaparin Sodium (Lovenox) 60 mg DAILY SC Last administered on 06/20/16 08:30 ; Admin Dose 60 MG; Start 06/18/16 at 13:00 Hydralazine HCl (Apresoline) 25 mg Q6H PRN PO SBP>150 mm hg ; Start 06/19/16 at 11:30 Furosemide (Lasix) 40 mg DAILY PO Last administered on 06/20/16 08:27; Admin Dose 40 MG; Start 06/20/16 at 09:00 Pantoprazole (Protonix Tab) 40 mg DAILY@06 PO Last administered on 06/20/16 05 :19; Admin Dose 40 MG; Start 06/20/16 at 06:00 DIANN VO Jun 20, 2016 13:57
[2016-06-20 15:35] VITALS: BP 142/63; RESP 18
--- NOTE | 2016-06-20 15:50 | RADRPT ---
Vent Rate: 125 bpm RR Interval: 0 msec NC Interval: 0 msec QRS Duration: 134 msec QT Interval: 350 msec QTC Interval: 505 msec P-R-T [place]: 0 - -18 - 152 degrees Wide QRS tachycardia Nonspecific intraventricular block T wave abnormality, consider lateral ischemia Abnormal ECG Electronically Signed By: Collin Washburn [id number]
[2016-06-20 20:00] VITALS: BP 128/65; RESP 20
[2016-06-20] MEDS: ATORVASTATIN 80 MG TAB PO SCH (22:00)
[2016-06-21] VITALS: BP 116/62; RESP 15
[2016-06-21] MEDS: PANTOPRAZOLE (EC) 40 MG TAB PO SCH (05:58)
[2016-06-21 08:00] VITALS: BP 139/65; PULSE 60; RESP 20
[2016-06-21] MEDS: INSULIN ASPART [NOVOLOG] 3 ML PEN SC SCH ×4 (08:37→20:55)
[2016-06-21] MEDS: ACETAMINOPHEN 325 MG TAB PO PRN ×2 (08:49→22:52)
[2016-06-21] MEDS: CLOPIDOGREL 75 MG TAB PO SCH (08:58)
[2016-06-21] MEDS: TAMSULOSIN (SR) 0.4 MG CAP PO SCH (08:58)
[2016-06-21] MEDS: AMIODARONE 200 MG TAB PO SCH ×2 (08:59→21:00)
[2016-06-21] MEDS: FUROSEMIDE 40 MG TAB PO SCH (09:00)
[2016-06-21] MEDS: CARBIDOPA/LEVODOPA (25/100) TAB PO SCH ×3 (09:00→20:44)
[2016-06-21] MEDS: ENOXAPARIN 60 MG/0.6 ML SYG SC SCH (09:02)
[2016-06-21] MEDS: SALMETEROL/FLUTICASONE 500/50 INHA INH SCH ×2 (09:04→20:43)
--- NOTE | 2016-06-21 10:20 | PN ---
Date/Time of Note Date/Time of Note DATE: 06/21/16 TIME: 10:19 Assessment/Plan VTE Prophylaxis VTE Prophylaxis Intervention: LMWH Lines/Catheters IV Catheter Type (from Nrs): Saline Lock Urinary Cath still in place: No Assessment/Plan Assessment/Plan 1. Atrial fibrillation with rapid ventricular rate.- converted to Sins rthythm 2. Severe hypotension with systolic in 80s, likely secondary to cardiogenic shock.- no w resolved 3. Acute congestive heart failure exacerbation, acute on chronic, systolic. 4. History of ischemic cardiomyopathy, EF 25% to 30%, status post automatic implantable cardioverter-defibrillator placement. 5. History of hypertension. 6. History of hyperlipidemia. 7. History of diabetes mellitus. PLAN: converted to SR now - no won coreg, MTP IV prn- change lasix to 40 mg po daily downgraded to med/surge floor Cardiology has been following on lovenox 60mg SQ daily Subjective 24 Hr Interval Summary Free Text/Dictation pt stable, awaiting bed to med/surge floor, c/o chest pain with SOB today Exam/Review of Systems Vital Signs Vitals Vital Signs Date Time Temp Pulse Resp B/P Pulse Ox O2 Delivery O2 Flow Rate FiO2 06/21/16 00:00 98.0 49 15 116/62 93 06/19/16 04:00 Room Air Intake and Output 06/20/16 06/20/16 06/21/16 15:00 23:00 07:00 Intake Total 880 ml 220 ml Output Total 1300 ml 920 ml Balance -420 ml -700 ml Exam GENERAL: Awake, alert, HEENT: Oropharynx clear. Moist mucous membrane. NECK: Jugular venous distention up the mid neck and jaw. LUNGS: Decreased breath sounds at both lung bases. HEART: S1, S2,Regular rthythm ABDOMEN: Soft, nontender, nondistended. Bowel sounds are present. EXTREMITIES: No clubbing, cyanosis, or edema. NEUROLOGICAL: Nonfocal, intact. PSYCHIATRIC: Appropriate affect and mood. Results Result Diagram: 06/20/16 0706/20/16 07 Results 24 hrs Laboratory Tests Test 06/20/16 12:14 06/20/16 17:30 06/20/16 22:24 06/21/16 01:50 Bedside Glucose 228 H 222 H 208 184 Test 06/21/16 07:37 Bedside Glucose 202 Medications Medications Current Medications Atorvastatin Calcium (Lipitor) 80 mg QHS PO Last administered on 06/20/16 22: 00; Admin Dose 80 MG; Start 06/15/16 at 21:00 Carbidopa/Levodopa (Sinemet (25/ 100)) 1 tab TID PO Last administered on 09:00; Admin Dose 1 TAB; Start 06/15/16 at 21:00 Carvedilol (Coreg) 3.125 mg BID PO Last administered on 06/21/16 08:59; Admin Dose 3.125 MG; Start 06/15/16 at 14:00 Clopidogrel Bisulfate (plaVIX) 75 mg DAILY PO Last administered on 06/21/16 08 :58; Admin Dose 75 MG; Start 06/16/16 at 09:00 Tramadol HCl (Ultram) 100 mg Q6H PRN PO Moderate PAIN Last administered on 06/20 08:27; Admin Dose 100 MG; Start 06/15/16 at 14:00 Tamsulosin HCl (Flomax) 0.4 mg DAILY PO Last administered on 06/21/16 08:58; Admin Dose 0.4 MG; Start 06/15/16 at 14:00 Salmeterol Xinafoate/ Fluticasone (Advair 500/50 Diskus) 1 inh BID INH Last administered on 06/21/16 09:04; Admin Dose 1 INH; Start 06/15/16 at 21:00 Ondansetron HCl (Zofran Inj) 4 mg Q4H PRN IV NAUSEA AND/OR VOMITING; Start at 14:00 Acetaminophen (Tylenol Tab) 650 mg Q6H PRN PO PAIN LEVEL 1-3 OR FEVER Last administered on 06/21/16 08:49; Admin Dose 650 MG; Start 06/15/16 at 14:00 Hydromorphone HCl (Dilaudid) 0.5 mg Q4H PRN IV SEVERE PAIN LEVEL 7-10; Start at 14:00 Docusate Sodium (Colace) 100 mg Q12H PRN PO CONSTIPATION Last administered on 15:28; Admin Dose 100 MG; Start 06/15/16 at 14:00 Magnesium Hydroxide (Milk Of Mag) 30 ml DAILY PRN PO CONSTIPATION; Start at 14:00 Bisacodyl (Dulcolax) 5 mg DAILY PRN PO CONSTIPATION; Start 06/15/16 at 14:00 Bisacodyl (Dulcolax Supp) 10 mg DAILY PRN [place] CONSTIPATION; Start 06/15/16 at 14 :00 Sodium Biphosphate/ Sodium Phosphate (Fleet Enema) 133 ml DAILY PRN IN CONSTIPATION; Start 06/15/16 at 14:00 Zolpidem Tartrate (Ambien) 5 mg QHS PRN PO SLEEP; Start 06/15/16 at 14:00 Miscellaneous Information 1 ea NOTE XX ; Start 06/15/16 at 14:30 Glucose (Glutose) 15 gm Q15M PRN PO DECREASED GLUCOSE; Start 06/15/16 at 14:30 Glucose (Glutose) 22.5 gm Q15M PRN PO DECREASED GLUCOSE; Start 06/15/16 at 14: 30 Dextrose (D50w Syringe) 25 ml Q15M PRN IV DECREASED GLUCOSE; Start 06/15/16 at 14:30 Dextrose (D50w Syringe) 50 ml Q15M PRN IV DECREASED GLUCOSE; Start 06/15/16 at 14:30 Glucagon (Glucagen) 1 mg Q15M PRN IM DECREASED GLUCOSE; Start 06/15/16 at 14:30 Glucose (Glutose) 15 gm Q15M PRN BUCCAL DECREASED GLUCOSE; Start 06/15/16 at 14 :30 Amiodarone HCl (Cordarone) 200 mg BID PO Last administered on 06/21/16 08:59; Admin Dose 200 MG; Start 06/17/16 at 21:00 Hydralazine HCl (Apresoline) 25 mg BID PO Last administered on 06/21/16 08:59 ; Admin Dose 25 MG; Start 06/17/16 at 21:00 Enoxaparin Sodium (Lovenox) 60 mg DAILY SC Last administered on 06/21/16 09:02 ; Admin Dose 60 MG; Start 06/18/16 at 13:00 Hydralazine HCl (Apresoline) 25 mg Q6H PRN PO SBP>150 mm hg ; Start 06/19/16 at 11:30 Furosemide (Lasix) 40 mg DAILY PO Last administered on 06/21/16 09:00; Admin Dose 40 MG; Start 06/20/16 at 09:00 Pantoprazole (Protonix Tab) 40 mg DAILY@06 PO Last administered on 06/21/16t 05 :58; Admin Dose 40 MG; Start 06/20/16 at 06:00 Diagnostic Test (Pha) (Accucheck) 1 02 XX ; Start 06/22/16 at 02:00 JAIRO YUNG MD Jun 21, 2016 10:20
[2016-06-21 12:00] VITALS: BP 112/59; PULSE 65; RESP 19
--- NOTE | 2016-06-21 12:23 | CONS ---
Date/Time of Note Date/Time of Note DATE: 06/21/16 TIME: 12:21 Assessment/Plan Assessment/Plan Chief Complaint/Hosp Course IMPRESSION 1. Hypotension, assess for cardiac etiology versus sepsis-now improved and off of pressors 2. Wide complex tachycardia concerning for nonsustained ventricular tachycardia , more likely supraventricular tachycardia with baseline bundle branch block.- negative troponin x 3-Has had recurrent SVT to 130'a ? atypical AFL now back in SR 3. Shortness of breath, assess for congestive heart failure. 4. Ischemic cardiomyopathy with decreased left ventricular ejection fraction, last known to be approximately 30% to 35% by echo 05/2015. 5. Chest pain, assess for acute coronary syndrome with a negative stress test 05/2015, EF of 39% at that time. 6. History of automatic implantable cardioverter-defibrillator, status post interrogation with a baseline rate of 45 and VVI mode with good battery life and no events. 7. Severe lower extremity edema.-improving significantly 8. Anemia. 9. Renal failure-slowly improving 10. CHF-systolic acute on chronic-improving volume status REcc: -Now med-surg -ECG to document current rhythm -Continue plavix -Continue lasix and follow volume status closely -Continue PO amiodarone/lovenox with transition to apixaban at D/C to prevent thromboembolic complications in setting of PAF/AFL -Continue coreg as tolerated only Problems: Consultation Date/Type/Reason Admit Date/Time Jun 15, 2016 at 11:30 Initial Consult Date 06/15/16 Type of Consultation: Cardiology Reason for Consultation SVT Referring Provider: JAIRO YUNG MD Exam/Review of Systems Vital Signs Vitals Vital Signs Date Time Temp Pulse Resp B/P Pulse Ox O2 Delivery O2 Flow Rate FiO2 06/21/16 00:00 98.0 49 15 116/62 93 06/19/16 04:00 Room Air Intake and Output 06/20/16 06/20/16 06/21/16 15:00 23:00 07:00 Intake Total 880 ml 220 ml Output Total 1300 ml 920 ml Balance -420 ml -700 ml Exam Review of Systems: CONSTITUTIONAL: No fevers, chills. PULMONARY: No sob CARDIOVASCULAR: No chest pain/palpitations GASTROINTESTINAL: No nausea/vomiting. GENITOURINARY: No hematuria/dysuria. MUSCULOSKELETAL: No myagias/arthalgias. PSYCHIATRIC: The patient denies depression. NEUROLOGIC: No weakness Constitutional: alert, oriented Psych: no complaints Head: normocephalic ENMT: mucosa pink and moist Neck: jvd (9 cm water), supple Respiratory: diminished breath sounds Cardiovascular: regular rate and rhythm Gastrointestinal: non-tender, soft Musculoskeletal: muscle tone (normal) Extremities: edema (none) Neurological: other (No focal deficits) Results Result Diagram: 06/20/1670406/20/16 0705 Results 24 hrs Laboratory Tests Test 06/20/16 17:30 06/20/16 22:24 06/21/16 01:50 06/21/16 07:37 Bedside Glucose 222 H 208 184 202 Test 06/21/16 11:15 Bedside Glucose 293 H Medications Medications Current Medications Atorvastatin Calcium (Lipitor) 80 mg QHS PO Last administered on 06/20/16 22: 00; Admin Dose 80 MG; Start 06/15/16 at 21:00 Carbidopa/Levodopa (Sinemet (25/ 100)) 1 tab TID PO Last administered on 12:11; Admin Dose 1 TAB; Start 06/15/16 at 21:00 Carvedilol (Coreg) 3.125 mg BID PO Last administered on 06/21/16 08:59; Admin Dose 3.125 MG; Start 06/15/16 at 14:00 Clopidogrel Bisulfate (plaVIX) 75 mg DAILY PO Last administered on 06/21/16 08 :58; Admin Dose 75 MG; Start 06/16/16 at 09:00 Tramadol HCl (Ultram) 100 mg Q6H PRN PO Moderate PAIN Last administered on 06/20 08:27; Admin Dose 100 MG; Start 06/15/16 at 14:00 Tamsulosin HCl (Flomax) 0.4 mg DAILY PO Last administered on 06/21/16 08:58; Admin Dose 0.4 MG; Start 06/15/16 at 14:00 Salmeterol Xinafoate/ Fluticasone (Advair 500/50 Diskus) 1 inh BID INH Last administered on 06/21/16 09:04; Admin Dose 1 INH; Start 06/15/16 at 21:00 Ondansetron HCl (Zofran Inj) 4 mg Q4H PRN IV NAUSEA AND/OR VOMITING; Start at 14:00 Acetaminophen (Tylenol Tab) 650 mg Q6H PRN PO PAIN LEVEL 1-3 OR FEVER Last administered on 06/21/16 08:49; Admin Dose 650 MG; Start 06/15/16 at 14:00 Hydromorphone HCl (Dilaudid) 0.5 mg Q4H PRN IV SEVERE PAIN LEVEL 7-10; Start at 14:00 Docusate Sodium (Colace) 100 mg Q12H PRN PO CONSTIPATION Last administered on 15:28; Admin Dose 100 MG; Start 06/15/16 at 14:00 Magnesium Hydroxide (Milk Of Mag) 30 ml DAILY PRN PO CONSTIPATION; Start at 14:00 Bisacodyl (Dulcolax) 5 mg DAILY PRN PO CONSTIPATION; Start 06/15/16 at 14:00 Bisacodyl (Dulcolax Supp) 10 mg DAILY PRN [place] CONSTIPATION; Start 06/15/16 at 14 :00 Sodium Biphosphate/ Sodium Phosphate (Fleet Enema) 133 ml DAILY PRN [place] CONSTIPATION; Start 06/15/16 at 14:00 Zolpidem Tartrate (Ambien) 5 mg QHS PRN PO SLEEP; Start 06/15/16 at 14:00 Miscellaneous Information 1 ea NOTE XX ; Start 06/15/16 at 14:30 Glucose (Glutose) 15 gm Q15M PRN PO DECREASED GLUCOSE; Start 06/15/16 at 14:30 Glucose (Glutose) 22.5 gm Q15M PRN PO DECREASED GLUCOSE; Start 06/15/16 at 14: 30 Dextrose (D50w Syringe) 25 ml Q15M PRN IV DECREASED GLUCOSE; Start 06/15/16 at 14:30 Dextrose (D50w Syringe) 50 ml Q15M PRN IV DECREASED GLUCOSE; Start 06/15/16 at 14:30 Glucagon (Glucagen) 1 mg Q15M PRN IM DECREASED GLUCOSE; Start 06/15/16 at 14:30 Glucose (Glutose) 15 gm Q15M PRN BUCCAL DECREASED GLUCOSE; Start 06/15/16 at 14 :30 Amiodarone HCl (Cordarone) 200 mg BID PO Last administered on 06/21/16 08:59; Admin Dose 200 MG; Start 06/17/16 at 21:00 Hydralazine HCl (Apresoline) 25 mg BID PO Last administered on 06/21/16 08:59 ; Admin Dose 25 MG; Start 06/17/16 at 21:00 Enoxaparin Sodium (Lovenox) 60 mg DAILY SC Last administered on 06/21/16 09:02 ; Admin Dose 60 MG; Start 06/18/16 at 13:00 Hydralazine HCl (Apresoline) 25 mg Q6H PRN PO SBP>150 mm hg ; Start 06/19/16 at 11:30 Furosemide (Lasix) 40 mg DAILY PO Last administered on 06/21/16 09:00; Admin Dose 40 MG; Start 06/20/16 at 09:00 Pantoprazole (Protonix Tab) 40 mg DAILY@06 PO Last administered on 06/21/16 05 :58; Admin Dose 40 MG; Start 06/20/16 at 06:00 Diagnostic Test (Pha) (Accucheck) 1 ea 02 XX ; Start 06/22/16 at 02:00 DIANN VO Jun 21, 2016 12:23
[2016-06-21] MEDS: traMADol 50 MG TAB PO PRN (13:24)
[2016-06-21 16:42] VITALS: BP 126/60; RESP 20
[2016-06-21 20:00] VITALS: BP 116/66; PULSE 51; RESP 16
[2016-06-21] MEDS: ATORVASTATIN 80 MG TAB PO SCH (20:44)
[2016-06-22] VITALS (9 sets, daily range): BP systolic 100–129; BP diastolic 56–77; PULSE 53–61; RESP 16–19
[2016-06-22] MEDS ORDERED: ACCUCHECK XX SCH (02:00)
[2016-06-22] MEDS: PANTOPRAZOLE (EC) 40 MG TAB PO SCH (05:47)
[2016-06-22] MEDS: ACETAMINOPHEN 325 MG TAB PO PRN ×2 (07:40→16:42)
[2016-06-22] MEDS: CLOPIDOGREL 75 MG TAB PO SCH (09:00)
[2016-06-22] MEDS: TAMSULOSIN (SR) 0.4 MG CAP PO SCH (09:00)
[2016-06-22] MEDS: CARBIDOPA/LEVODOPA (25/100) TAB PO SCH ×2 (09:01→12:10)
[2016-06-22] MEDS: AMIODARONE 200 MG TAB PO SCH (09:01)
[2016-06-22] MEDS: FUROSEMIDE 40 MG TAB PO SCH (09:02)
[2016-06-22] MEDS: ENOXAPARIN 60 MG/0.6 ML SYG SC SCH (09:06)
[2016-06-22] MEDS: INSULIN ASPART [NOVOLOG] 3 ML PEN SC SCH ×2 (09:07→11:44)
[2016-06-22] MEDS: SALMETEROL/FLUTICASONE 500/50 INHA INH SCH (09:07)
--- NOTE | 2016-06-22 12:03 | PN ---
Date/Time of Note Date/Time of Note DATE: 06/22/16 TIME: 12:03 Assessment/Plan VTE Prophylaxis VTE Prophylaxis Intervention: LMWH Lines/Catheters IV [facility]ter Type (from [facility]): Saline Lock Urinary Cath still in place: No Assessment/Plan Assessment/Plan 1. Atrial fibrillation with rapid ventricular rate.- converted to Sins rthythm 2. Severe hypotension with systolic in 80s, likely secondary to cardiogenic shock.- no w resolved 3. Acute congestive heart failure exacerbation, acute on chronic, systolic. 4. History of ischemic cardiomyopathy, EF 25% to 30%, status post automatic implantable cardioverter-defibrillator placement. 5. History of hypertension. 6. History of hyperlipidemia. 7. History of diabetes mellitus. PLAN: converted to SR now - no won coreg, MTP IV prn- change lasix to 40 mg po daily downgraded to med/surge floor Cardiology has been following on lovenox 60mg SQ daily Subjective 24 Hr Interval Summary Free Text/Dictation pt stable,afebrile, no complaints Exam/Review of Systems Vital Signs Vitals Vital Signs Date Time Temp Pulse Resp B/P Pulse Ox O2 Delivery O2 Flow Rate FiO2 06/22/16 08:13 53 06/22/16 07:31 98.2 19 122/58 95 06/22/16 04:00 Room Air Intake and Output 06/21/16 06/21/16 06/22/16 15:00 23:00 07:00 Intake Total 960 ml 700 ml Output Total 800 ml Balance 160 ml 700 ml Exam GENERAL: Awake, alert, HEENT: Oropharynx clear. Moist mucous membrane. NECK: Jugular venous distention up the mid neck and jaw. LUNGS: Decreased breath sounds at both lung bases. HEART: S1, S2,Regular rthythm ABDOMEN: Soft, nontender, nondistended. Bowel sounds are present. EXTREMITIES: No clubbing, cyanosis, or edema. NEUROLOGICAL: Nonfocal, intact. PSYCHIATRIC: Appropriate affect and mood. Results Result Diagram: 06/20/1670406/20/16704 Results 24 hrs Laboratory Tests Test 06/21/16 17:03 06/21/16 20:52 06/22/16 02:57 06/22/16 07:44 Bedside Glucose 244 H 261 H 180 180 Test 06/22/16 11:40 Bedside Glucose 272 H Medications Medications Current Medications Atorvastatin Calcium (Lipitor) 80 mg QHS PO Last administered on 06/21/16 20: 44; Admin Dose 80 MG; Start 06/15/16 at 21:00 Carbidopa/Levodopa (Sinemet (25/ 100)) 1 tab TID PO Last administered on 09:01; Admin Dose 1 TAB; Start 06/15/16 at 21:00 Carvedilol (Coreg) 3.125 mg BID PO Last administered on 06/22/16 09:01; Admin Dose 3.125 MG; Start 06/15/16 at 14:00 Clopidogrel Bisulfate (plaVIX) 75 mg DAILY PO Last administered on 06/22/16 09 :00; Admin Dose 75 MG; Start 06/16/16 at 09:00 Tramadol HCl (Ultram) 100 mg Q6H PRN PO Moderate PAIN Last administered on 06/21 13:24; Admin Dose 100 MG; Start 06/15/16 at 14:00 Tamsulosin HCl (Flomax) 0.4 mg DAILY PO Last administered on 06/22/16 09:00; Admin Dose 0.4 MG; Start 06/15/16 at 14:00 Salmeterol Xinafoate/ Fluticasone (Advair 500/50 Diskus) 1 inh BID INH Last administered on 06/22/16 09:07; Admin Dose 1 INH; Start 06/15/16 at 21:00 Ondansetron HCl (Zofran Inj) 4 mg Q4H PRN IV NAUSEA AND/OR VOMITING; Start at 14:00 Acetaminophen (Tylenol Tab) 650 mg Q6H PRN PO PAIN LEVEL 1-3 OR FEVER Last administered on 06/22/16 07:40; Admin Dose 650 MG; Start 06/15/16 at 14:00 Hydromorphone HCl (Dilaudid) 0.5 mg Q4H PRN IV SEVERE PAIN LEVEL 7-10; Start at 14:00 Docusate Sodium (Colace) 100 mg Q12H PRN PO CONSTIPATION Last administered on 15:28; Admin Dose 100 MG; Start 06/15/16 at 14:00 Magnesium Hydroxide (Milk Of Mag) 30 ml DAILY PRN PO CONSTIPATION; Start at 14:00 Bisacodyl (Dulcolax) 5 mg DAILY PRN PO CONSTIPATION; Start 06/15/16 at 14:00 Bisacodyl (Dulcolax Supp) 10 mg DAILY PRN [place] CONSTIPATION; Start 06/15/16 at 14 :00 Sodium Biphosphate/ Sodium Phosphate (Fleet Enema) 133 ml DAILY PRN [place] CONSTIPATION; Start 06/15/16 at 14:00 Zolpidem Tartrate (Ambien) 5 mg QHS PRN PO SLEEP; Start 06/15/16 at 14:00 Miscellaneous Information 1 ea NOTE XX ; Start 06/15/16 at 14:30 Glucose (Glutose) 15 gm Q15M PRN PO DECREASED GLUCOSE; Start 06/15/16 at 14:30 Glucose (Glutose) 22.5 gm Q15M PRN PO DECREASED GLUCOSE; Start 06/15/16 at 14: 30 Dextrose (D50w Syringe) 25 ml Q15M PRN IV DECREASED GLUCOSE; Start 06/15/16 at 14:30 Dextrose (D50w Syringe) 50 ml Q15M PRN IV DECREASED GLUCOSE; Start 06/15/16 at 14:30 Glucagon (Glucagen) 1 mg Q15M PRN IM DECREASED GLUCOSE; Start 06/15/16 at 14:30 Glucose (Glutose) 15 gm Q15M PRN BUCCAL DECREASED GLUCOSE; Start 06/15/16 at 14 :30 Amiodarone HCl (Cordarone) 200 mg BID PO Last administered on 06/22/16 09:01; Admin Dose 200 MG; Start 06/17/16 at 21:00 Hydralazine HCl (Apresoline) 25 mg BID PO Last administered on 06/22/16 09:01 ; Admin Dose 25 MG; Start 06/17/16 at 21:00 Enoxaparin Sodium (Lovenox) 60 mg DAILY SC Last administered on 06/22/16 09:06 ; Admin Dose 60 MG; Start 06/18/16 at 13:00 Hydralazine HCl (Apresoline) 25 mg Q6H PRN PO SBP>150 mm hg ; Start 06/19/16 at 11:30 Furosemide (Lasix) 40 mg DAILY PO Last administered on 06/22/16 09:02; Admin Dose 40 MG; Start 06/20/16 at 09:00 Pantoprazole (Protonix Tab) 40 mg DAILY@06 PO Last administered on 06/22/16 05 :47; Admin Dose 40 MG; Start 06/20/16 at 06:00 Diagnostic Test (Pha) (Accucheck) 1 ea 02 XX Last administered on 06/22/16 02: 00; Admin Dose 1 EA; Start 06/22/16 at 02:00 JAIRO YUNG MD Jun 22, 2016 12:03
--- NOTE | 2016-06-22 12:05 | PDOCDIS ---
Discharge Instructions CONDITION Patient Condition: Good HOME CARE INSTRUCTIONS: Special Diet: PUREED ACTIVITY: Activity Restrictions: Slowly Increase Activity Rest between Activity Avoid heavy lifting Avoid Heavy Housework FOLLOW UP/APPOINTMENTS Appointments follow up with Dr.Kalpesh Yung in 1-2 week after discharge, Follow up with in 2-3 weeks. JAIRO YUNG MD Jun 22, 2016 12:05
[2016-06-22] MEDS ORDERED: AMIO200T2 PO (12:12)
[2016-06-22] MEDS ORDERED: TAMS0.4C2 PO (12:12)
[2016-06-22] MEDS: traMADol 50 MG TAB PO PRN (12:14)
--- NOTE | 2016-06-22 12:36 | CONS ---
Date/Time of Note Date/Time of Note DATE: 06/22/16 TIME: 12:34 Assessment/Plan Assessment/Plan Additional Assessment/Plan 1. Hypotension, assess for cardiac etiology versus sepsis-now improved and off of pressors - better now, responded well to rate control, now in sinus 2. Wide complex tachycardia concerning for nonsustained ventricular tachycardia , more likely supraventricular tachycardia with baseline bundle branch block.- negative troponin x 3-Has had recurrent SVT to 130'a ? atypical AFL now back in SR - sinus now 3. Shortness of breath, assess for congestive heart failure.- much better, likely tachycardia induced 4. Ischemic cardiomyopathy with decreased left ventricular ejection fraction, last known to be approximately 30% to 35% by echo 05/2015. ICD in place 5. Chest pain, assess for acute coronary syndrome with a negative stress test 05/2015, EF of 39% at that time. 6. History of automatic implantable cardioverter-defibrillator, status post interrogation with a baseline rate of 45 and VVI mode with good battery life and no events. 7. Severe lower extremity edema.-improving significantly 8. Anemia- H./H stable - much improved now 9. Renal failure-slowly improving 10. CHF-systolic acute on chronic-improving volume status Consultation Date/Type/Reason Admit Date/Time Jun 15, 2016 at 11:30 Initial Consult Date Type of Consultation: Cardiology Referring Provider: JAIRO YUNG MD 24 HR Interval Summary Free Text/Dictation No acute change- converted to sinus - much better fluid status - con't Med Rx. ROS: No fever, no chills, no nausea, no vomiting, no diarrhea/constipation No recent weight changes No chest pain, no PND, no orthopnea No dizziness, blurred vision No thirst, no heat or cold intolerance Exam/Review of Systems Vital Signs Vitals Vital Signs Date Time Temp Pulse Resp B/P Pulse Ox O2 Delivery O2 Flow Rate FiO2 06/22/16 12:23 97.9 57 19 100/56 95 06/22/16 04:00 Room Air Intake and Output 06/21/16 06/21/16 06/22/16 15:00 23:00 07:00 Intake Total 960 ml 700 ml Output Total 800 ml Balance 160 ml 700 ml Exam General: WN/WD/NAD, AOx 3 HEENT: Unicetric/atraumatic/EOMI (follows commands) NECK: JVD elevated, no thyromegaly Lymph: no lymphadenopathy HEART: regular with no S3, II/ systolic murmur at apex, ICD LUNGS: Coarse sounds ABD: soft, NT, ND, +BS : Intact Neuro: non focal SKIN: chronic changes EXT: trace edema Results Result Diagram: 06/20/1670406/20/16 07 Results 24 hrs Laboratory Tests Test 06/21/16 17:03 06/21/16 20:52 06/22/16 02:57 06/22/16 07:44 Bedside Glucose 244 H 261 H 180 180 Test 06/22/16 11:40 Bedside Glucose 272 H Medications Medications Current Medications Atorvastatin Calcium (Lipitor) 80 mg QHS PO Last administered on 06/21/16 20: 44; Admin Dose 80 MG; Start 06/15/16 at 21:00 Carbidopa/Levodopa (Sinemet (25/ 100)) 1 tab TID PO Last administered on 12:10; Admin Dose 1 TAB; Start 06/15/16 at 21:00 Carvedilol (Coreg) 3.125 mg BID PO Last administered on 06/22/16 09:01; Admin Dose 3.125 MG; Start 06/15/16 at 14:00 Clopidogrel Bisulfate (plaVIX) 75 mg DAILY PO Last administered on 06/22/16 09 :00; Admin Dose 75 MG; Start 06/16/16 at 09:00 Tramadol HCl (Ultram) 100 mg Q6H PRN PO Moderate PAIN Last administered on 06/22 12:14; Admin Dose 100 MG; Start 06/15/16 at 14:00 Tamsulosin HCl (Flomax) 0.4 mg DAILY PO Last administered on 06/22/16 09:00; Admin Dose 0.4 MG; Start 06/15/16 at 14:00 Salmeterol Xinafoate/ Fluticasone (Advair 500/50 Diskus) 1 inh BID INH Last administered on 06/22/16 09:07; Admin Dose 1 INH; Start 06/15/16 at 21:00 Ondansetron HCl (Zofran Inj) 4 mg Q4H PRN IV NAUSEA AND/OR VOMITING; Start at 14:00 Acetaminophen (Tylenol Tab) 650 mg Q6H PRN PO PAIN LEVEL 1-3 OR FEVER Last administered on 06/22/16 07:40; Admin Dose 650 MG; Start 06/15/16 at 14:00 Hydromorphone HCl (Dilaudid) 0.5 mg Q4H PRN IV SEVERE PAIN LEVEL 7-10; Start at 14:00 Docusate Sodium (Colace) 100 mg Q12H PRN PO CONSTIPATION Last administered on 15:28; Admin Dose 100 MG; Start 06/15/16 at 14:00 Magnesium Hydroxide (Milk Of Mag) 30 ml DAILY PRN PO CONSTIPATION; Start at 14:00 Bisacodyl (Dulcolax) 5 mg DAILY PRN PO CONSTIPATION; Start 06/15/16 at 14:00 Bisacodyl (Dulcolax Supp) 10 mg DAILY PRN [place] CONSTIPATION; Start 06/15/16 at 14 :00 Sodium Biphosphate/ Sodium Phosphate (Fleet Enema) 133 ml DAILY PRN [place] CONSTIPATION; Start 06/15/16 at 14:00 Zolpidem Tartrate (Ambien) 5 mg QHS PRN PO SLEEP; Start 06/15/16 at 14:00 Miscellaneous Information 1 ea NOTE XX ; Start 06/15/16 at 14:30 Glucose (Glutose) 15 gm Q15M PRN PO DECREASED GLUCOSE; Start 06/15/16 at 14:30 Glucose (Glutose) 22.5 gm Q15M PRN PO DECREASED GLUCOSE; Start 06/15/16 at 14: 30 Dextrose (D50w Syringe) 25 ml Q15M PRN IV DECREASED GLUCOSE; Start 06/15/16 at 14:30 Dextrose (D50w Syringe) 50 ml Q15M PRN IV DECREASED GLUCOSE; Start 06/15/16 at 14:30 Glucagon (Glucagen) 1 mg Q15M PRN IM DECREASED GLUCOSE; Start 06/15/16 at 14:30 Glucose (Glutose) 15 gm Q15M PRN BUCCAL DECREASED GLUCOSE; Start 06/15/16 at 14 :30 Amiodarone HCl (Cordarone) 200 mg BID PO Last administered on 06/22/16 09:01; Admin Dose 200 MG; Start 06/17/16 at 21:00 Hydralazine HCl (Apresoline) 25 mg BID PO Last administered on 06/22/16 09:01 ; Admin Dose 25 MG; Start 06/17/16 at 21:00 Enoxaparin Sodium (Lovenox) 60 mg DAILY SC Last administered on 06/22/16 09:06 ; Admin Dose 60 MG; Start 06/18/16 at 13:00 Hydralazine HCl (Apresoline) 25 mg Q6H PRN PO SBP>150 mm hg ; Start 06/19/16 at 11:30 Furosemide (Lasix) 40 mg DAILY PO Last administered on 06/22/16 09:02; Admin Dose 40 MG; Start 06/20/16 at 09:00 Pantoprazole (Protonix Tab) 40 mg DAILY@06 PO Last administered on 06/22/16 05 :47; Admin Dose 40 MG; Start 06/20/16 at 06:00 Diagnostic Test (Pha) (Accucheck) 1 ea 02 XX Last administered on 06/22/16 02: 00; Admin Dose 1 EA; Start 06/22/16 at 02:00 AAMIR CATES MD Jun 22, 2016 12:36
--- NOTE | 2016-06-23 06:34 | DS ---
DATE OF ADMISSION: 06/15/2016 DATE OF DISCHARGE: 06/22/2016 FINAL DISCHARGE DIAGNOSES: 1. Atrial fibrillation with rapid ventricular rate, converted to sinus rhythm. 2. Severe hypotension with systolic blood pressure in the 80's, likely secondary to cardiogenic lissett ck. 3. Acute congestive heart failure exacerbation, acute on chronic, systolic. 4. History of ischemic cardiomyopathy, ejection fraction 25% to 30%, status post automatic implanta ble cardioverter-defibrillator (AICD) placement. 5. History of hypertension. 6. History of hyperlipidemia. 7. History of diabetes mellitus. CONSULTATIONS DONE DURING THIS HOSPITALIZATION: Cardiology consult, Dr. Billy Mcclure/Dr. Mike kim. PROCEDURES PERFORMED DURING THIS HOSPITALIZATION: The patient had an echocardiogram done during thi s hospitalization and was read by Dr. Mcclure which revealed ejection fractions 20% with multiple se gmental wall motion abnormalities. HOSPITAL COURSE: This is a 76-year-old male with a past medical history of hypertension, hyperlipid emia, diabetes mellitus, history of ischemic cardiomyopathy with ejection fraction 25% to 30%, statu s post AICD placement who presented with shortness of breath, chest pain. He was noted to have atri al fibrillation with rapid ventricular rate. He also had severe hypotension unresponsive to IV flui ds in the emergency room. He gets admitted to the ICU for septic cardiogenic shock and also for atr ial fibrillation with rapid ventricular rate. He was started on a Cardizem drip for his rate contro l. He slowly improved back to his normal baseline status and he is converted to the sinus rhythm wi th amiodarone. He stayed in the ICU for 2 days and after that he was [facility] where he was continued on amiodarone and carvedilol for his rate control. The patient continues to have in and out of atrial fibrillations but he remained hemodynamically stable. Due to age and other comorbidities, he was not given any anticoagulation on discharge. He remained symptom free, h is rate was controlled and he gets discharged home with a followup with on-call cardiology, Dr. Fisher ins and follow up with Dr. Jairo Jennings as outpatient in 1 to 2 weeks after discharge. DISPOSITION: To home. DISCHARGE CONDITION: Stable and improved compared to admission. DISCHARGE ACTIVITIES: As tolerated, slowly resume to the normal baseline activity. DISCHARGE DIET: Cardiac ADA 1800 kilocalorie diet. DISCHARGE MEDICATIONS: He is given prescriptions of: Amiodarone 100 mg p.o. b.i.d. and Flomax 0.4 mg p.o. daily. Upon discharge, he is continued on all of his other home medications including: Sinemet, carvedilol , Plavix, Lasix, glimepiride, Dulera, Januvia, Tramadol. DISCHARGE FOLLOWUP AND INSTRUCTIONS: 1. The patient is to follow with Dr. Jairo Jennings in 1 to 2 weeks after discharge. 2. The patient is to follow up with Dr. Billy Mcclure/Dr. Mcguire as outpatient in 1 to 2 weeks afte r discharge. He has been explained about the discharge plan and followup instructions. He understood and verbali zed understanding. Dictated By: JAIRO JENNINGS MD, KP/UZIEL Conf#: [id number] DID#: [id number]
== END 2016-06-22 17:10 | disposition home health service (06) | DRG 291 ==
LOC: E/R 09:53 → ICU 11:30 → TEL 06-17 14:23
PROVIDERS: ADMIT Internal Medicine Nephrology; ATTEND Internal Medicine Nephrology
DX: I13.0 Hypertensive heart and chronic kidney disease with heart failure and stage 1 through stage 4 chronic kidney disease, or unspecified chronic kidney disease (principal); R57.0 Cardiogenic shock; I48.91 Unspecified atrial fibrillation; E78.5 Hyperlipidemia, unspecified; E11.9 Type 2 diabetes mellitus without complications; D64.9 Anemia, unspecified; I50.23 Acute on chronic systolic (congestive) heart failure; Z95.810 Presence of automatic (implantable) cardiac defibrillator; I45.4 Nonspecific intraventricular block; I25.5 Ischemic cardiomyopathy; N18.9 Chronic kidney disease, unspecified
CPT/HCPCS: 36415; 71010; 80048; 80053; 80061; 82550; 82553; 82962; 83036; 83735; 84436; 84443; 84479; 84484; 85025; 85610; 85730; 93005; 93306; 93971; 96372; 96374; 96375; J1940; C9113; J0282; J1815